=== PATIENT | female | born 1990 | race American Indian/Alaskan Native ===

== ENCOUNTER 2017-02-28 20:21 | Emergency (ER) | payer MEDICAID ==
[2017-02-28 20:27] VITALS: BP 117/77
--- NOTE | 2017-02-28 20:37 | EDM.PDOC ---
ED HPI GENERAL MEDICAL PROBLEM - General Chief Complaint: Chest Pain Stated Complaint: CHEST PAINS, [id number] Time Seen by Provider: 02/28/17 20:34 Source of Information: Reports: Patient History Limitations: Reports: No Limitations - History of Present Illness INITIAL COMMENTS - FREE TEXT/NARRATIVE: 3 weeks h/o constant dull achy chest pain that goes sharp stabbing on off but tonight got so bad it made her double over. also 28 weeks also she "" after last delivery due to blood lost. states just moved here and has appt with Dr Orona. but had one twin demise. 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: , Other (See Below) Other OB/BYN History: hx hemorrhage Musculoskeletal History: Reports: None Neurological History: Reports: None Psychiatric History: Reports: None Endocrine/Metabolic History: Reports: None Hematologic History: Reports: Anemia Immunologic History: Reports: None Oncologic (Cancer) History: Reports: None Dermatologic History: Reports: None - Infectious Disease History Infectious Disease History: Reports: None - Past Surgical History Head Surgeries/Procedures: Reports: None Social & Family History - Family History Family Medical History: Noncontributory - Tobacco Use Smoking Status *Q: Current Every Day Smoker Years of Tobacco use: 10 Packs/Tins Daily: 0.1 Second Hand Smoke Exposure: Yes - Caffeine Use Caffeine Use: Reports: Coffee - Recreational Drug Use Recreational Drug Use: No ED ROS GENERAL - Review of Systems Review Of Systems: ROS reveals no pertinent complaints other than HPI. ED EXAM, GENERAL - Physical Exam Exam: See Below Exam Limited By: No Limitations General Appearance: Alert, WD/WN, Anxious Ears: Hearing Grossly Normal Throat/Mouth: Normal Voice, No Airway Compromise Head: Atraumatic Neck: Non-Tender, Full Range of Motion Respiratory/Chest: No Respiratory Distress Cardiovascular: Regular Rate, Rhythm GI/Abdominal: Other (grossly , FHT 150s) Neurological: Alert, Oriented, Normal Cognition, Normal Gait, No Motor/Sensory Deficits Psychiatric: Other (distraught) Skin Exam: Warm, Dry, Normal Color Lymphatic: No Adenopathy Course - Vital Signs Last Recorded V/S: Last Vital Signs Temp 35.9 C 02/28/17 20:22 Pulse 96 02/28/17 20:22 Resp 18 02/28/17 20:22 BP 117/77 02/28/17 20:22 Pulse Ox 100 02/28/17 20:22 - Orders/Labs/Meds Orders: Active Orders 24 hr Category Date Time Status EKG 12 Lead [EKG Documentation Completion] [RC] STAT Care 02/28/17 20:28 Active Sodium Chloride 0.9% [Normal Saline] 1,000 ml Med 02/28/17 21:18 Ordered IV .BOLUS Medication Orders Sodium Chloride (Normal Saline) 1,000 mls @ 500 mls/hr IV .BOLUS ONE Stop: 02/28/17 23:17 Labs: Laboratory Tests 02/28/17 02/28/17 02/28/17 Range/Units 20:30 20:30 20:30 WBC 8.0 (5.0-10.0) 10^3/uL RBC 3.88 L (4.2-5.4) 10^6/uL Hgb 11.7 L (12.0-16.0) g/dL Hct 35.3 L (37.0-47.0) % MCV 91.0 (80-100) fL MCH 30.2 (27.0-34.0) pg MCHC 33.1 (33.0-35.0) g/dL Plt Count 196 (150-450) 10^3/uL Neut % (Auto) 75.4 H (42.2-75.2) % Lymph % (Auto) 15.7 L (20.5-50.1) % [place] % (Auto) 7.7 (2-8) % Eos % (Auto) 1.0 (1.0-3.0) % Baso % (Auto) 0.2 (0.0-1.0) % D-Dimer, Quantitative 558 H (0-400) ng/mL Sodium 138 (135-145) mmol/L Potassium 3.5 L (3.6-5.0) mmol/L Chloride 104 (101-111) mmol/L Carbon Dioxide 25.0 (21.0-31.0) mmol/L Anion Gap 12.5 BUN 8 (7-18) mg/dL Creatinine 0.6 (0.6-1.3) mg/dL Est Cr Clr Drug Dosing 145.85 mL/min Estimated GFR (MDRD) > 60 BUN/Creatinine Ratio 13.33 Glucose 78 (74-105) mg/dL Calcium 8.6 (8.4-10.2) mg/dl Total Bilirubin 0.5 (0.2-1.0) mg/dL AST 93 H (10-42) IU/L ALT 108 H (10-60) IU/L Alkaline Phosphatase 99 (42-121) IU/L Troponin I < 0.02 (0.00-0.02) ng/ml Total Protein 6.6 L (6.7-8.2) g/dl Albumin 2.8 L (3.2-5.5) g/dl Globulin 3.8 Albumin/Globulin Ratio 0.74 Meds: Medications Generic Name Dose Route Start Last Admin Trade Name Freq PRN Reason Stop Dose Admin Sodium Chloride 1,000 mls @ 500 mls/hr 02/28/17 21:18 Normal Saline IV 02/28/17 23:17 .BOLUS ONE Discontinued Medications Generic Name Dose Route Start Last Admin Trade Name Freq PRN Reason Stop Dose Admin Morphine Sulfate 2 mg 02/28/17 21:18 Morphine IVPUSH 02/28/17 21:19 ONETIME ONE Ondansetron HCl 4 mg 02/28/17 21:18 Zofran IV 02/28/17 21:19 ONETIME ONE - Re-Assessments/Exams Free Text/Narrative Re-Assessment/Exam: 02/28/17 21:[address] Bhagat @ [facility] who kindly accepted pt. Departure - Departure Time of Disposition: 21:22 Disposition: DC/Tfer to [facility] 02 Reason for Transfer *Q: Other Condition: Good Clinical Impression: Chest pain at rest, Elevated d-dimer Qualifiers: Weeks of gestation: 28 weeks Qualified Code(s): Z3A.28 - 28 weeks gestation of Forms: Interfacility Transfer EMTALA - My Orders Last 24 Hours: My Active Orders 02/28/17 20:28 EKG 12 Lead [EKG Documentation Completion] [RC] STAT 02/28/17 21:18 Sodium Chloride 0.9% [Normal Saline] 1,000 ml IV .BOLUS - Assessment/Plan Last 24 Hours: My Active Orders 02/28/17 20:28 EKG 12 Lead [EKG Documentation Completion] [RC] STAT 02/28/17 21:18 Sodium Chloride 0.9% [Normal Saline] 1,000 ml IV .BOLUS
[2017-02-28 20:57] LABS: CHLORIDE,CL 104 mmol/L (101-111); SODIUM,NA 138 mmol/L (135-145)
[2017-02-28] MEDS ORDERED: Sodium Chloride 0.9% 1,000 ML IV ONE (21:18)
[2017-02-28] MEDS ORDERED: Ondansetron 4 MG/2 ML SDV IV ONE (21:18)
[2017-02-28] MEDS ORDERED: Morphine 2 MG/ML Syringe IVPUSH ONE (21:18)
--- NOTE | 2017-03-02 09:37 | EKG ---
02/28/2017 - ALEXIS CERON I reviewed the EKG and agree with the machine reading. [facility] /[id number]
== END 2017-02-28 21:57 ==
LOC: DL.ED 20:21
DX: O99.89 Other specified diseases and conditions complicating pregnancy, childbirth and the puerperium (principal); R07.9 Chest pain, unspecified; R79.1 Abnormal coagulation profile; O99.333 Smoking (tobacco) complicating pregnancy, third trimester; F17.210 Nicotine dependence, cigarettes, uncomplicated; Z86.2 Personal history of diseases of the blood and blood-forming organs and certain disorders involving the immune mechanism; Z3A.28 28 weeks gestation of pregnancy
CPT/HCPCS: 36415; 80053; 84484; 85025; 85379; 93005; 93010; 96361; 96374; 96375; 99285; J2270; J2405; J7030

== ENCOUNTER 2017-05-16 07:46 | Inpatient (IN) | payer MEDICAID, SELFPAY ==
[2017-05-16] MEDS ORDERED: Methylergonovine 0.2 MG/1 ML Amp IM PRN (07:52)
[2017-05-16] MEDS ORDERED: Lactated Ringers 500 ML IV ONE (07:52)
[2017-05-16] MEDS ORDERED: Misoprostol 400 MCG (4 X 100 MCG TAB) RECTAL PRN ×2 (07:52→13:58)
[2017-05-16] MEDS ORDERED: Lidocaine 1% 30 ML SDV INJECT PRN (07:52)
[2017-05-16] MEDS ORDERED: Acetaminophen 325 MG Tab PO PRN (07:52)
[2017-05-16] MEDS ORDERED: Carboprost Tromethamine 250 MCG/1 ML Amp IM PRN ×2 (07:52→13:58)
[2017-05-16] MEDS ORDERED: Sodium Chloride 0.9% 10 ML Syringe FLUSH PRN ×2 (07:52→13:58)
[2017-05-16] MEDS: Lactated Ringers 1,000 ML IV SCH ×3 (08:00→18:28)
[2017-05-16] MEDS ORDERED: Ampicillin 1 GM in Sodium Chloride 0.9% 100 ML IV SCH (08:00)
[2017-05-16] MEDS ORDERED: Ampicillin 1 GM in Sodium Chloride 0.9% 100 ML IV ONE (08:30)
--- NOTE | 2017-05-16 09:14 | PCM.PNLD ---
Labor Progress Note - VS & Meds Active Medications: Current Medications Acetaminophen (Tylenol) 650 mg PO Q4H PRN PRN Reason: Pain (Mild 1-3) and fever Carboprost Tromethamine (Hemabate Ds) 250 mcg IM ASDIRECTED PRN PRN Reason: HEMORRHAGE Ampicillin Sodium 1 gm/ Sodium (Chloride) 50 mls @ 100 mls/hr IV Q6H [facility] Lactated Ringer's (Ringers, Lactated) 500 mls @ 125 mls/hr IV .BOLUS ONE Stop: 05/16/17 11:51 Lactated Ringer's (Ringers, Lactated) 1,000 mls @ 125 mls/hr IV ASDIRECTED [facility] Last Admin: 05/16/17 08:00 Dose: 125 mls/hr Ampicillin Sodium 1 gm/ Sodium (Chloride) 100 mls @ 100 mls/hr IV ONETIME ONE Stop: 05/16/17 09:29 Last Admin: 05/16/17 07:40 Dose: 100 mls/hr Lidocaine HCl (Xylocaine-Mpf 1%) 10 ml INJECT ASDIRECTED PRN PRN Reason: Perineal Repair Methylergonovine Maleate (Methergine) 0.2 mg IM ASDIRECTED PRN PRN Reason: Hemorrhage Misoprostol (Cytotec) 800 mcg RECTAL ASDIRECTED PRN PRN Reason: Hemorrhage Ondansetron HCl (Zofran) 4 mg IV Q4H PRN PRN Reason: Nausea/Vomiting Sodium Chloride (Saline Flush) 10 ml FLUSH ASDIRECTED PRN PRN Reason: Keep Vein Open Discontinued Medications Ampicillin Sodium 1 gm/ Sodium (Chloride) 100 mls @ 100 mls/hr IV ASDIRECTED [facility] Stop: 05/17/17 08:59 - Uterine Contractions Uterine Monitoring Mode: External [place] Contraction Intensity: Mild to Moderate Uterine Resting Tone: Soft - Monitoring Monitor Mode: External Ultrasound Heart Rate (FHR) Baseline: 140 Heart Rate (FHR) Variability: Moderate (6-25 bmp) Accelerations: Present, 15x15 Decelerations: None Strip Review: Category I - Vaginal Exam Dilation (cm): 2.5 Effacement (Percent): 80 Station: -2 Cervical Position: Posterior Sterile Vaginal Exam Performed By: Camron Garces Vaginal Exam Comment: AROM, Clear fluid - Labor Progress (Free Text) Labor Progress: Patient very uncomfortable. No nausea, vomiting,or diarrhea. No fever or chills. Nubain 20 mg IM given feeling much better. Aundrea every 2-3 minutes. Continue present care. Will get Intrathecal when she desires and is in active labor.
[2017-05-16] MEDS ORDERED: Nalbuphine 20 MG/1 ML Amp IM ONE (09:45)
[2017-05-16] MEDS: Ondansetron 4 MG/2 ML SDV IV PRN ×2 (12:52→18:03)
[2017-05-16] MEDS: Ampicillin 1 GM in Sodium Chloride 0.9% 50 ML IV SCH ×3 (13:14→20:15)
[2017-05-16] MEDS ORDERED: Oxytocin/Normal Saline 30 UNIT/500 ML BAG IV SCH (13:30)
[2017-05-16] MEDS ORDERED: Simethicone 80 MG Tab.Chew PO PRN (13:58)
[2017-05-16] MEDS ORDERED: Zolpidem 5 MG Tab PO PRN (13:58)
[2017-05-16] MEDS ORDERED: Benzocaine/Menthol 20%-0.5% Spray 56 GM Canister TOP PRN (13:58)
[2017-05-16] MEDS ORDERED: Ibuprofen 800 MG Tab PO PRN (13:58)
[2017-05-16] MEDS ORDERED: Oxytocin 10 Units/1 ML SDV IM PRN (13:58)
[2017-05-16] MEDS ORDERED: Ampicillin 1 GM AdvVial IV ONE (14:08)
[2017-05-16] MEDS: Oxytocin/Normal Saline 30 UNIT/500 ML BAG IV SCH ×2 (14:26→21:30)
--- NOTE | 2017-05-16 16:00 | PCM.PNLD ---
<Sayra Kaplan - Last Filed: 05/16/17 16:00> Labor Progress Note - VS & Meds Vital Signs: Last Vital Signs Temp 97.4 F 05/16/17 09:00 Pulse 86 05/16/17 10:00 Resp 18 05/16/17 10:00 BP 123/85 05/16/17 10:00 Pulse Ox Active Medications: Current Medications Acetaminophen (Tylenol) 650 mg PO Q6H PRN PRN Reason: mild pain or fever Benzocaine/Menthol (Dermoplast Pain Relief [place]) 0 gm TOP Q4H PRN PRN Reason: Perineal comfort measures Carboprost Tromethamine (Hemabate Ds) 250 mcg IM ASDIRECTED PRN PRN Reason: HEMORRHAGE Carboprost Tromethamine (Hemabate Ds) 250 mcg IM ASDIRECTED PRN PRN Reason: Excessive vaginal bleeding Docusate Sodium (Colace) 100 mg PO BID PRN PRN Reason: Constipation Ampicillin Sodium 1 gm/ Sodium (Chloride) 50 mls @ 100 mls/hr IV Q6H [facility] Last Admin: 05/16/17 14:19 Dose: 100 mls/hr Lactated Ringer's (Ringers, Lactated) 1,000 mls @ 125 mls/hr IV ASDIRECTED [facility] Last Admin: 05/16/17 08:00 Dose: 125 mls/hr Oxytocin/Sodium Chloride (Pitocin In Ns 30 Unit/500 Ml) 30 unit in 500 mls @ 2 mls/hr IV TITRATE [facility]; 2 MUNITS/MIN PRN Reason: Protocol Last Admin: 05/16/17 14:26 Dose: 2 munits/min, 2 mls/hr Oxytocin/Sodium Chloride (Pitocin In Ns 30 Unit/500 Ml) 30 unit in 500 mls @ 2 mls/hr IV TITRATE [facility]; 2 MUNITS/MIN PRN Reason: Protocol Ibuprofen (Motrin) 800 mg PO Q8H PRN PRN Reason: Mild Pain or Fever Lidocaine HCl (Xylocaine-Mpf 1%) 10 ml INJECT ASDIRECTED PRN PRN Reason: Perineal Repair Methylergonovine Maleate (Methergine) 0.2 mg IM ASDIRECTED PRN PRN Reason: Hemorrhage Misoprostol (Cytotec) 800 mcg RECTAL ASDIRECTED PRN PRN Reason: Hemorrhage Misoprostol (Cytotec) 800 mcg RECTAL ONETIME PRN PRN Reason: Hemorrhage Ondansetron HCl (Zofran) 4 mg IV Q4H PRN PRN Reason: Nausea/Vomiting Last Admin: 05/16/17 12:52 Dose: 4 mg Oxytocin (Pitocin) 10 unit IM ONETIME PRN PRN Reason: Bleeding Prenat Multivit/[employer]/Iron/Folic Ac ( Plus Iron) 1 each PO DAILY [facility] Simethicone (Simethicone) 80 mg PO Q4H PRN PRN Reason: Gas Sodium Chloride (Saline Flush) 10 ml FLUSH ASDIRECTED PRN PRN Reason: Keep Vein Open Zolpidem Tartrate (Ambien) 5 mg PO BEDTIME PRN PRN Reason: Insomnia Discontinued Medications Acetaminophen (Tylenol) 650 mg PO Q4H PRN PRN Reason: Pain (Mild 1-3) and fever Ampicillin Sodium (Ampicillin) Confirm Administered Dose 1 gm IV .STK-MED ONE Stop: 05/16/17 14:09 Ampicillin Sodium 1 gm/ Sodium (Chloride) 100 mls @ 100 mls/hr IV ASDIRECTED [facility] Stop: 05/17/17 08:59 Lactated Ringer's (Ringers, Lactated) 500 mls @ 125 mls/hr IV .BOLUS ONE Stop: 05/16/17 11:51 Last Admin: 05/16/17 12:53 Dose: 125 mls/hr Ampicillin Sodium 1 gm/ Sodium (Chloride) 100 mls @ 100 mls/hr IV ONETIME ONE Stop: 05/16/17 09:29 Last Admin: 05/16/17 07:40 Dose: 100 mls/hr Nalbuphine HCl (Nubain) 20 mg IM ONETIME ONE Stop: 05/16/17 09:46 Last Admin: 05/16/17 07:41 Dose: 20 mg Sodium Chloride (Saline Flush) 10 ml FLUSH ASDIRECTED PRN PRN Reason: Keep Vein Open - Uterine Contractions Uterine Monitoring Mode: External [place] Contraction Frequency (min): 3.5-4 Contraction Duration (sec): 50-110 Contraction Intensity: Moderate Uterine Resting Tone: Soft - Monitoring Monitor Mode: External Ultrasound Heart Rate (FHR) Baseline: 140 Heart Rate (FHR) Variability: Moderate (6-25 bmp) Accelerations: Present, 15x15 Decelerations: None Strip Review: Category I - Vaginal Exam Dilation (cm): 4 Effacement (Percent): 80 Station: -1 Cervical Position: Posterior Sterile Vaginal Exam Performed By: Sayra Kaplan (Confirmed by ISIAAH Fountain ) Vaginal Exam Comment: AROM, Clear fluid - Labor Progress (Free Text) Labor Progress: Patient resting in bed, tolerating uterine contractions. Her pitosin is running at 6 units/minute. She is currently 4 cm dilated, 80% effaced, and -1 station. She deferring intrathecal pain control for when she is closer to her second stage of labor. She is able to ambulated to the bathroom and urinate. She denies dysuria, fever, chills, SOB, and vaginal discharge. <Camron Garces - Last Filed: 05/16/17 16:14> Labor Progress Note - VS & Meds Vital Signs: Last Vital Signs Temp 97.4 F 05/16/17 09:00 Pulse 86 05/16/17 10:00 Resp 18 05/16/17 10:00 BP 123/85 05/16/17 10:00 Pulse Ox Active Medications: Current Medications Acetaminophen (Tylenol) 650 mg PO Q6H PRN PRN Reason: mild pain or fever Benzocaine/Menthol (Dermoplast Pain Relief [place]) 0 gm TOP Q4H PRN PRN Reason: Perineal comfort measures Carboprost Tromethamine (Hemabate Ds) 250 mcg IM ASDIRECTED PRN PRN Reason: HEMORRHAGE Carboprost Tromethamine (Hemabate Ds) 250 mcg IM ASDIRECTED PRN PRN Reason: Excessive vaginal bleeding Docusate Sodium (Colace) 100 mg PO BID PRN PRN Reason: Constipation Ampicillin Sodium 1 gm/ Sodium (Chloride) 50 mls @ 100 mls/hr IV Q6H [facility] Last Admin: 05/16/17 14:19 Dose: 100 mls/hr Lactated Ringer's (Ringers, Lactated) 1,000 mls @ 125 mls/hr IV ASDIRECTED [facility] Last Admin: 05/16/17 08:00 Dose: 125 mls/hr Oxytocin/Sodium Chloride (Pitocin In Ns 30 Unit/500 Ml) 30 unit in 500 mls @ 2 mls/hr IV TITRATE [facility]; 2 MUNITS/MIN PRN Reason: Protocol Last Admin: 05/16/17 14:26 Dose: 2 munits/min, 2 mls/hr Oxytocin/Sodium Chloride (Pitocin In Ns 30 Unit/500 Ml) 30 unit in 500 mls @ 2 mls/hr IV TITRATE [facility]; 2 MUNITS/MIN PRN Reason: Protocol Ibuprofen (Motrin) 800 mg PO Q8H PRN PRN Reason: Mild Pain or Fever Lidocaine HCl (Xylocaine-Mpf 1%) 10 ml INJECT ASDIRECTED PRN PRN Reason: Perineal Repair Methylergonovine Maleate (Methergine) 0.2 mg IM ASDIRECTED PRN PRN Reason: Hemorrhage Misoprostol (Cytotec) 800 mcg RECTAL ASDIRECTED PRN PRN Reason: Hemorrhage Misoprostol (Cytotec) 800 mcg RECTAL ONETIME PRN PRN Reason: Hemorrhage Ondansetron HCl (Zofran) 4 mg IV Q4H PRN PRN Reason: Nausea/Vomiting Last Admin: 05/16/17 12:52 Dose: 4 mg Oxytocin (Pitocin) 10 unit IM ONETIME PRN PRN Reason: Bleeding Prenat Multivit/[employer]visor/Iron/Folic Ac ( Plus Iron) 1 each PO DAILY [facility] Simethicone (Simethicone) 80 mg PO Q4H PRN PRN Reason: Gas Sodium Chloride (Saline Flush) 10 ml FLUSH ASDIRECTED PRN PRN Reason: Keep Vein Open Zolpidem Tartrate (Ambien) 5 mg PO BEDTIME PRN PRN Reason: Insomnia Discontinued Medications Acetaminophen (Tylenol) 650 mg PO Q4H PRN PRN Reason: Pain (Mild 1-3) and fever Ampicillin Sodium (Ampicillin) Confirm Administered Dose 1 gm IV .STK-MED ONE Stop: 05/16/17 14:09 Last Admin: 05/16/17 16:05 Dose: Not Given Fentanyl (Sublimaze) 50 mcg IVPUSH ONETIME ONE Stop: 05/16/17 16:02 Ampicillin Sodium 1 gm/ Sodium (Chloride) 100 mls @ 100 mls/hr IV ASDIRECTED [facility] Stop: 05/17/17 08:59 Lactated Ringer's (Ringers, Lactated) 500 mls @ 125 mls/hr IV .BOLUS ONE Stop: 05/16/17 11:51 Last Admin: 05/16/17 12:53 Dose: 125 mls/hr Ampicillin Sodium 1 gm/ Sodium (Chloride) 100 mls @ 100 mls/hr IV ONETIME ONE Stop: 05/16/17 09:29 Last Admin: 05/16/17 07:40 Dose: 100 mls/hr Nalbuphine HCl (Nubain) 20 mg IM ONETIME ONE Stop: 05/16/17 09:46 Last Admin: 05/16/17 07:41 Dose: 20 mg Sodium Chloride (Saline Flush) 10 ml FLUSH ASDIRECTED PRN PRN Reason: Keep Vein Open - Labor Progress (Free Text) Labor Progress: I have seen and evaluated the patient. No issues. Desires IV medication for pain at this time. Reassuring category 1 strip. Will continue with Pitocin augmentation.
[2017-05-16] MEDS ORDERED: fentaNYL 100 MCG/2 ML SDV IVPUSH ONE (16:01)
--- NOTE | 2017-05-16 17:31 | PCM.PNLD ---
<Sayra Kaplan - Last Filed: 05/16/17 17:32> Labor Progress Note - VS & Meds Vital Signs: Last Vital Signs Temp 97.6 F 05/16/17 12:30 Pulse 80 05/16/17 11:00 Resp 16 05/16/17 11:00 BP 107/68 05/16/17 11:00 Pulse Ox Active Medications: Current Medications Acetaminophen (Tylenol) 650 mg PO Q6H PRN PRN Reason: mild pain or fever Benzocaine/Menthol (Dermoplast Pain Relief [place]) 0 gm TOP Q4H PRN PRN Reason: Perineal comfort measures Carboprost Tromethamine (Hemabate Ds) 250 mcg IM ASDIRECTED PRN PRN Reason: HEMORRHAGE Carboprost Tromethamine (Hemabate Ds) 250 mcg IM ASDIRECTED PRN PRN Reason: Excessive vaginal bleeding Docusate Sodium (Colace) 100 mg PO BID PRN PRN Reason: Constipation Ampicillin Sodium 1 gm/ Sodium (Chloride) 50 mls @ 100 mls/hr IV Q6H [facility] Last Admin: 05/16/17 14:19 Dose: 100 mls/hr Lactated Ringer's (Ringers, Lactated) 1,000 mls @ 125 mls/hr IV ASDIRECTED [facility] Last Admin: 05/16/17 16:21 Dose: 125 mls/hr Oxytocin/Sodium Chloride (Pitocin In Ns 30 Unit/500 Ml) 30 unit in 500 mls @ 2 mls/hr IV TITRATE [facility]; 2 MUNITS/MIN PRN Reason: Protocol Last Admin: 05/16/17 14:26 Dose: 2 munits/min, 2 mls/hr Oxytocin/Sodium Chloride (Pitocin In Ns 30 Unit/500 Ml) 30 unit in 500 mls @ 2 mls/hr IV TITRATE [facility]; 2 MUNITS/MIN PRN Reason: Protocol Ibuprofen (Motrin) 800 mg PO Q8H PRN PRN Reason: Mild Pain or Fever Lidocaine HCl (Xylocaine-Mpf 1%) 10 ml INJECT ASDIRECTED PRN PRN Reason: Perineal Repair Methylergonovine Maleate (Methergine) 0.2 mg IM ASDIRECTED PRN PRN Reason: Hemorrhage Misoprostol (Cytotec) 800 mcg RECTAL ASDIRECTED PRN PRN Reason: Hemorrhage Misoprostol (Cytotec) 800 mcg RECTAL ONETIME PRN PRN Reason: Hemorrhage Ondansetron HCl (Zofran) 4 mg IV Q4H PRN PRN Reason: Nausea/Vomiting Last Admin: 05/16/17 12:52 Dose: 4 mg Oxytocin (Pitocin) 10 unit IM ONETIME PRN PRN Reason: Bleeding Prenat Multivit/[place]/Iron/Folic Ac ( Plus Iron) 1 each PO DAILY [facility] Simethicone (Simethicone) 80 mg PO Q4H PRN PRN Reason: Gas Sodium Chloride (Saline Flush) 10 ml FLUSH ASDIRECTED PRN PRN Reason: Keep Vein Open Zolpidem Tartrate (Ambien) 5 mg PO BEDTIME PRN PRN Reason: Insomnia Discontinued Medications Acetaminophen (Tylenol) 650 mg PO Q4H PRN PRN Reason: Pain (Mild 1-3) and fever Ampicillin Sodium (Ampicillin) Confirm Administered Dose 1 gm IV .STK-MED ONE Stop: 05/16/17 14:09 Last Admin: 05/16/17 16:05 Dose: Not Given Fentanyl (Sublimaze) 50 mcg IVPUSH ONETIME ONE Stop: 05/16/17 16:02 Last Admin: 05/16/17 16:21 Dose: 50 mcg Ampicillin Sodium 1 gm/ Sodium (Chloride) 100 mls @ 100 mls/hr IV ASDIRECTED [facility] Stop: 05/17/17 08:59 Lactated Ringer's (Ringers, Lactated) 500 mls @ 125 mls/hr IV .BOLUS ONE Stop: 05/16/17 11:51 Last Admin: 05/16/17 12:53 Dose: 125 mls/hr Ampicillin Sodium 1 gm/ Sodium (Chloride) 100 mls @ 100 mls/hr IV ONETIME ONE Stop: 05/16/17 09:29 Last Admin: 05/16/17 07:40 Dose: 100 mls/hr Nalbuphine HCl (Nubain) 20 mg IM ONETIME ONE Stop: 05/16/17 09:46 Last Admin: 05/16/17 07:41 Dose: 20 mg Sodium Chloride (Saline Flush) 10 ml FLUSH ASDIRECTED PRN PRN Reason: Keep Vein Open - Uterine Contractions Uterine Monitoring Mode: External [place] Contraction Frequency (min): 3.5-4 Contraction Duration (sec): 50-110 Contraction Intensity: Moderate Uterine Resting Tone: Soft - Monitoring Monitor Mode: External Ultrasound Heart Rate (FHR) Baseline: 140 Heart Rate (FHR) Variability: Moderate (6-25 bmp) Accelerations: Present, 15x15 Decelerations: Early, Intermittent (<50% x 20 min) Strip Review: Category I - Vaginal Exam Dilation (cm): 5+ Effacement (Percent): 80 Station: -1 Cervical Position: Posterior Sterile Vaginal Exam Performed By: Sayra Kaplan (Confirmed by ISAIAH Fountain ) Vaginal Exam Comment: AROM, Clear fluid - Labor Progress (Free Text) Labor Progress: Patient tolerating contractions well after 50mcg IV Fentanyl push. She 5+ cm dilated, 80% effaced, and -1 station. Pitocin was increased to 12 units/minute after cervical check. heart rate in 130 - 140s with early decelerations. Patient is eating toast and visiting with Father of Baby Irving. Patient able to ambulate to bathroom and urinating. Patient denies fever, chills, SOB, vaginal discharge or dysuria. <Camron Garces - Last Filed: 05/16/17 19:42> Labor Progress Note - VS & Meds Vital Signs: Last Vital Signs Temp 97.9 F 05/16/17 15:30 Pulse 80 05/16/17 15:30 Resp 18 05/16/17 15:30 BP 113/73 05/16/17 15:30 Pulse Ox Active Medications: Current Medications Acetaminophen (Tylenol) 650 mg PO Q6H PRN PRN Reason: mild pain or fever Benzocaine/Menthol (Dermoplast Pain Relief [place]) 0 gm TOP Q4H PRN PRN Reason: Perineal comfort measures Carboprost Tromethamine (Hemabate Ds) 250 mcg IM ASDIRECTED PRN PRN Reason: HEMORRHAGE Carboprost Tromethamine (Hemabate Ds) 250 mcg IM ASDIRECTED PRN PRN Reason: Excessive vaginal bleeding Docusate Sodium (Colace) 100 mg PO BID PRN PRN Reason: Constipation Ampicillin Sodium 1 gm/ Sodium (Chloride) 50 mls @ 100 mls/hr IV Q6H [facility] Last Admin: 05/16/17 14:19 Dose: 100 mls/hr Lactated Ringer's (Ringers, Lactated) 1,000 mls @ 125 mls/hr IV ASDIRECTED [facility] Last Admin: 05/16/17 18:28 Dose: 125 mls/hr Oxytocin/Sodium Chloride (Pitocin In Ns 30 Unit/500 Ml) 30 unit in 500 mls @ 2 mls/hr IV TITRATE [facility]; 2 MUNITS/MIN PRN Reason: Protocol Last Admin: 05/16/17 14:26 Dose: 2 munits/min, 2 mls/hr Oxytocin/Sodium Chloride (Pitocin In Ns 30 Unit/500 Ml) 30 unit in 500 mls @ 2 mls/hr IV TITRATE [facility]; 2 MUNITS/MIN PRN Reason: Protocol Ibuprofen (Motrin) 800 mg PO Q8H PRN PRN Reason: Mild Pain or Fever Lidocaine HCl (Xylocaine-Mpf 1%) 10 ml INJECT ASDIRECTED PRN PRN Reason: Perineal Repair Methylergonovine Maleate (Methergine) 0.2 mg IM ASDIRECTED PRN PRN Reason: Hemorrhage Misoprostol (Cytotec) 800 mcg RECTAL ASDIRECTED PRN PRN Reason: Hemorrhage Misoprostol (Cytotec) 800 mcg RECTAL ONETIME PRN PRN Reason: Hemorrhage Ondansetron HCl (Zofran) 4 mg IV Q4H PRN PRN Reason: Nausea/Vomiting Last Admin: 05/16/17 18:03 Dose: 4 mg Oxytocin (Pitocin) 10 unit IM ONETIME PRN PRN Reason: Bleeding Prenat Multivit/[place]/Iron/Folic Ac ( Plus Iron) 1 each PO DAILY [facility] Simethicone (Simethicone) 80 mg PO Q4H PRN PRN Reason: Gas Sodium Chloride (Saline Flush) 10 ml FLUSH ASDIRECTED PRN PRN Reason: Keep Vein Open Zolpidem Tartrate (Ambien) 5 mg PO BEDTIME PRN PRN Reason: Insomnia Discontinued Medications Acetaminophen (Tylenol) 650 mg PO Q4H PRN PRN Reason: Pain (Mild 1-3) and fever Ampicillin Sodium (Ampicillin) Confirm Administered Dose 1 gm IV .STK-MED ONE Stop: 05/16/17 14:09 Last Admin: 05/16/17 16:05 Dose: Not Given Epinephrine HCl (Adrenalin) Confirm Administered Dose 1 mg .ROUTE .STK-MED ONE Stop: 05/16/17 18:15 Last Admin: 05/16/17 19:31 Dose: Not Given Fentanyl (Sublimaze) 50 mcg IVPUSH ONETIME ONE Stop: 05/16/17 16:02 Last Admin: 05/16/17 16:21 Dose: 50 mcg Fentanyl (Sublimaze) Confirm Administered Dose 100 mcg .ROUTE .STK-MED ONE Stop: 05/16/17 18:14 Last Admin: 05/16/17 19:30 Dose: Not Given Ampicillin Sodium 1 gm/ Sodium (Chloride) 100 mls @ 100 mls/hr IV ASDIRECTED [facility] Stop: 05/17/17 08:59 Lactated Ringer's (Ringers, Lactated) 500 mls @ 125 mls/hr IV .BOLUS ONE Stop: 05/16/17 11:51 Last Admin: 05/16/17 12:53 Dose: 125 mls/hr Ampicillin Sodium 1 gm/ Sodium (Chloride) 100 mls @ 100 mls/hr IV ONETIME ONE Stop: 05/16/17 09:29 Last Admin: 05/16/17 07:40 Dose: 100 mls/hr Nalbuphine HCl (Nubain) 20 mg IM ONETIME ONE Stop: 05/16/17 09:46 Last Admin: 05/16/17 07:41 Dose: 20 mg Sodium Chloride (Saline Flush) 10 ml FLUSH ASDIRECTED PRN PRN Reason: Keep Vein Open Sufentanil Citrate (Sufenta) Confirm Administered Dose 50 mcg .ROUTE .STK-MED ONE Stop: 05/16/17 18:15 Last Admin: 05/16/17 19:31 Dose: Not Given - Labor Progress (Free Text) Labor Progress: Patient doing well. No other complaints. I discussed the cse and evaluated the patient. All questions answered.
[2017-05-16] MEDS ORDERED: fentaNYL 100 MCG/2 ML SDV ONE (18:13)
[2017-05-16] MEDS ORDERED: EPINEPHrine 1 MG/ML SDV ONE (18:14)
--- NOTE | 2017-05-16 18:59 | PCM.PNLD ---
Labor Progress Note - VS & Meds Vital Signs: Last Vital Signs Temp 97.7 F 05/16/17 14:24 Pulse 90 05/16/17 14:24 Resp 16 05/16/17 14:24 BP 108/74 05/16/17 14:24 Pulse Ox Active Medications: Current Medications Acetaminophen (Tylenol) 650 mg PO Q6H PRN PRN Reason: mild pain or fever Benzocaine/Menthol (Dermoplast Pain Relief [place]) 0 gm TOP Q4H PRN PRN Reason: Perineal comfort measures Carboprost Tromethamine (Hemabate Ds) 250 mcg IM ASDIRECTED PRN PRN Reason: HEMORRHAGE Carboprost Tromethamine (Hemabate Ds) 250 mcg IM ASDIRECTED PRN PRN Reason: Excessive vaginal bleeding Docusate Sodium (Colace) 100 mg PO BID PRN PRN Reason: Constipation Ampicillin Sodium 1 gm/ Sodium (Chloride) 50 mls @ 100 mls/hr IV Q6H [facility] Last Admin: 05/16/17 14:19 Dose: 100 mls/hr Lactated Ringer's (Ringers, Lactated) 1,000 mls @ 125 mls/hr IV ASDIRECTED USMAN Last Admin: 05/16/17 18:28 Dose: 125 mls/hr Oxytocin/Sodium Chloride (Pitocin In Ns 30 Unit/500 Ml) 30 unit in 500 mls @ 2 mls/hr IV TITRATE USMAN; 2 MUNITS/MIN PRN Reason: Protocol Last Admin: 05/16/17 14:26 Dose: 2 munits/min, 2 mls/hr Oxytocin/Sodium Chloride (Pitocin In Ns 30 Unit/500 Ml) 30 unit in 500 mls @ 2 mls/hr IV TITRATE USMAN; 2 MUNITS/MIN PRN Reason: Protocol Ibuprofen (Motrin) 800 mg PO Q8H PRN PRN Reason: Mild Pain or Fever Lidocaine HCl (Xylocaine-Mpf 1%) 10 ml INJECT ASDIRECTED PRN PRN Reason: Perineal Repair Methylergonovine Maleate (Methergine) 0.2 mg IM ASDIRECTED PRN PRN Reason: Hemorrhage Misoprostol (Cytotec) 800 mcg RECTAL ASDIRECTED PRN PRN Reason: Hemorrhage Misoprostol (Cytotec) 800 mcg RECTAL ONETIME PRN PRN Reason: Hemorrhage Ondansetron HCl (Zofran) 4 mg IV Q4H PRN PRN Reason: Nausea/Vomiting Last Admin: 05/16/17 18:03 Dose: 4 mg Oxytocin (Pitocin) 10 unit IM ONETIME PRN PRN Reason: Bleeding Prenat Multivit/[place]/Iron/Folic Ac ( Plus Iron) 1 each PO DAILY USMAN Simethicone (Simethicone) 80 mg PO Q4H PRN PRN Reason: Gas Sodium Chloride (Saline Flush) 10 ml FLUSH ASDIRECTED PRN PRN Reason: Keep Vein Open Zolpidem Tartrate (Ambien) 5 mg PO BEDTIME PRN PRN Reason: Insomnia Discontinued Medications Acetaminophen (Tylenol) 650 mg PO Q4H PRN PRN Reason: Pain (Mild 1-3) and fever Ampicillin Sodium (Ampicillin) Confirm Administered Dose 1 gm IV .STK-MED ONE Stop: 05/16/17 14:09 Last Admin: 05/16/17 16:05 Dose: Not Given Epinephrine HCl (Adrenalin) Confirm Administered Dose 1 mg .ROUTE .STK-MED ONE Stop: 05/16/17 18:15 Fentanyl (Sublimaze) 50 mcg IVPUSH ONETIME ONE Stop: 05/16/17 16:02 Last Admin: 05/16/17 16:21 Dose: 50 mcg Fentanyl (Sublimaze) Confirm Administered Dose 100 mcg .ROUTE .STK-MED ONE Stop: 05/16/17 18:14 Ampicillin Sodium 1 gm/ Sodium (Chloride) 100 mls @ 100 mls/hr IV ASDIRECTED [facility] Stop: 05/17/17 08:59 Lactated Ringer's (Ringers, Lactated) 500 mls @ 125 mls/hr IV .BOLUS ONE Stop: 05/16/17 11:51 Last Admin: 05/16/17 12:53 Dose: 125 mls/hr Ampicillin Sodium 1 gm/ Sodium (Chloride) 100 mls @ 100 mls/hr IV ONETIME ONE Stop: 05/16/17 09:29 Last Admin: 05/16/17 07:40 Dose: 100 mls/hr Nalbuphine HCl (Nubain) 20 mg IM ONETIME ONE Stop: 05/16/17 09:46 Last Admin: 05/16/17 07:41 Dose: 20 mg Sodium Chloride (Saline Flush) 10 ml FLUSH ASDIRECTED PRN PRN Reason: Keep Vein Open Sufentanil Citrate (Sufenta) Confirm Administered Dose 50 mcg .ROUTE .[facility] ONE Stop: 05/16/17 18:15 - Uterine Contractions Uterine Monitoring Mode: External [place] Contraction Frequency (min): 3.5-4 Contraction Duration (sec): 50-110 Contraction Intensity: Moderate Uterine Resting Tone: Soft - Monitoring Monitor Mode: External Ultrasound Heart Rate (FHR) Baseline: 140 Heart Rate (FHR) Variability: Moderate (6-25 bmp) Accelerations: Present, 15x15 Decelerations: Early, Intermittent (<50% x 20 min) Strip Review: Category I - Vaginal Exam Dilation (cm): 6 Effacement (Percent): 80 Station: 0 Cervical Position: Posterior Sterile Vaginal Exam Performed By: Sayra Kaplan (Confirmed by Essie Duran RN ) Vaginal Exam Comment: Clear fluid - Labor Progress (Free Text) Labor Progress: Patient received intrathecal at 1830 and tolerated procedure well. Cervical check was performed at 1850 at she had progressed to 6cm dilated with caput at close to 0. Effacement of 80%. Patient was encouraged to rest. heart rate in 130-140s with early decelerations. Patient denies sharp pains with contractions, fever, chills, vaginal discharge, or numbness/tingling in extremities.
--- NOTE | 2017-05-16 19:08 | PCM.PRNOTE ---
- Free Text/Narrative Note: Requested to provide analgesia to full term patient in severe pain. Upon entering the room, patient is lying on left side complaining of severe abdominal pain and discomfort. Procedure was discussed with patient including adverse outcomes and expectations. Pt consented to analgesia, SAB/IT. Pt placed into a sitting position. Landmarks for SAB/IT were identified and marked. Back was prepped with betadine x3. A sterile, transparent, fenestrated drape was applied. Excess betadine was removed. Using 3 mL of a 1% lidocaine solution, a skin wheel was placed at the L3/L4 interspace. A 24 ga (4 inch) Pencan spinal needle was inserted until positive for CSF. Negative for heme or paresthesias. Injected fentanyl 20 mcg, sufentanil 10 mcg, and 13.5 mg of a 0.75% bupivacaine solution with an epi wash. Pt was placed left lateral position for approximately 20 minutes. There were zero complications or adverse outcomes. Will continue to monitor.
--- NOTE | 2017-05-16 20:24 | PCM.DEL ---
L & D Note - General Info Date of Service: 05/16/17 (39 2/7 weeks gestation at 1959) Mother's Due Date: 05/21/17 (By 24 week U/S) - Delivery Note Labor: Spontaneous, Augmented by ARM, Augmented by Oxytocin Delivery Outcome: Livebirth Delivery Method: Spontaneous Vaginal Delivery-Single (, OA, Viable female , 2 vessel umbilical cord, 7lbs 6oz 's 8 and 9) Delivery Mode: Spontaneous Presentation: Vertex Nuchal Cord: None Anesthesia Type: Intrathecal Amniotic Fluid Description: Clear Episiotomy Type: None Laceration: None Placenta: Intact, Spontaneous Cord: 3 Vessels Estimated Blood Loss: 250 Resuscitation Needed: No : Suctioned, Bulb Syringe, Stimulated, [place] Used Provider: Camron Garces Score 1 min: 8 Score 5 min: 9 Second Stage Interventions: Reports: Encouragement Given, Pushing Effectively, Pushing, Stirrups/Leg Supports Delivery Comments (Free Text/Narrative):: , OA, Viable female infant over intact perineum Cord 2 vessel not around neck. Placenta delivered by simple expression intact. Labia, vagina and cervix inspected and intact. Mother and infant in good condition. No complictions. Weight 7lbs 6oz 's- 8 and 9. - Patient Data Vitals - Most Recent: Last Vital Signs Temp 98.4 F 05/16/17 18:15 Pulse 74 05/16/17 18:45 Resp 16 05/16/17 18:45 BP 107/60 05/16/17 18:45 Pulse Ox 98 05/16/17 18:45 Weight - Most Recent: 147 lb Lab Results Last 24 Hours: Laboratory Results - last 24 hr 05/16/17 Range/Units 08:15 WBC 15.6 H (5.0-10.0) 10^3/uL RBC 3.57 L (4.2-5.4) 10^6/uL Hgb 10.4 L (12.0-16.0) g/dL Hct 31.7 L (37.0-47.0) % MCV 88.8 (80-100) fL MCH 29.1 (27.0-34.0) pg MCHC 32.8 L (33.0-35.0) g/dL Plt Count 223 (150-450) 10^3/uL Med Orders - Current: Current Medications Acetaminophen (Tylenol) 650 mg PO Q6H PRN PRN Reason: mild pain or fever Benzocaine/Menthol (Dermoplast Pain Relief [place]) 0 gm TOP Q4H PRN PRN Reason: Perineal comfort measures Carboprost Tromethamine (Hemabate Ds) 250 mcg IM ASDIRECTED PRN PRN Reason: HEMORRHAGE Carboprost Tromethamine (Hemabate Ds) 250 mcg IM ASDIRECTED PRN PRN Reason: Excessive vaginal bleeding Docusate Sodium (Colace) 100 mg PO BID PRN PRN Reason: Constipation Ampicillin Sodium 1 gm/ Sodium (Chloride) 50 mls @ 100 mls/hr IV Q6H USMAN Last Admin: 05/16/17 20:15 Dose: Not Given Lactated Ringer's (Ringers, Lactated) 1,000 mls @ 125 mls/hr IV ASDIRECTED USMAN Last Admin: 05/16/17 18:28 Dose: 125 mls/hr Oxytocin/Sodium Chloride (Pitocin In Ns 30 Unit/500 Ml) 30 unit in 500 mls @ 2 mls/hr IV TITRATE USMAN; 2 MUNITS/MIN PRN Reason: Protocol Last Titration: 05/16/17 15:41 Dose: 6 munits/min, 6 mls/hr Oxytocin/Sodium Chloride (Pitocin In Ns 30 Unit/500 Ml) 30 unit in 500 mls @ 2 mls/hr IV TITRATE USMAN; 2 MUNITS/MIN PRN Reason: Protocol Lidocaine HCl (Xylocaine-Mpf 1%) 10 ml INJECT ASDIRECTED PRN PRN Reason: Perineal Repair Methylergonovine Maleate (Methergine) 0.2 mg IM ASDIRECTED PRN PRN Reason: Hemorrhage Misoprostol (Cytotec) 800 mcg RECTAL ASDIRECTED PRN PRN Reason: Hemorrhage Misoprostol (Cytotec) 800 mcg RECTAL ONETIME PRN PRN Reason: Hemorrhage Ondansetron HCl (Zofran) 4 mg IV Q4H PRN PRN Reason: Nausea/Vomiting Last Admin: 05/16/17 18:03 Dose: 4 mg Oxytocin (Pitocin) 10 unit IM ONETIME PRN PRN Reason: Bleeding Prenat Multivit/Retirement Administrator/Iron/Folic Ac ( Plus Iron) 1 each PO DAILY USMAN Simethicone (Simethicone) 80 mg PO Q4H PRN PRN Reason: Gas Sodium Chloride (Saline Flush) 10 ml FLUSH ASDIRECTED PRN PRN Reason: Keep Vein Open Zolpidem Tartrate (Ambien) 5 mg PO BEDTIME PRN PRN Reason: Insomnia Discontinued Medications Acetaminophen (Tylenol) 650 mg PO Q4H PRN PRN Reason: Pain (Mild 1-3) and fever Ampicillin Sodium (Ampicillin) Confirm Administered Dose 1 gm IV .STK-MED ONE Stop: 05/16/17 14:09 Last Admin: 05/16/17 16:05 Dose: Not Given Epinephrine HCl (Adrenalin) Confirm Administered Dose 1 mg .ROUTE .STK-MED ONE Stop: 05/16/17 18:15 Last Admin: 05/16/17 19:31 Dose: Not Given Fentanyl (Sublimaze) 50 mcg IVPUSH ONETIME ONE Stop: 05/16/17 16:02 Last Admin: 05/16/17 16:21 Dose: 50 mcg Fentanyl (Sublimaze) Confirm Administered Dose 100 mcg .ROUTE .STK-MED ONE Stop: 05/16/17 18:14 Last Admin: 05/16/17 19:30 Dose: Not Given Ampicillin Sodium 1 gm/ Sodium (Chloride) 100 mls @ 100 mls/hr IV ASDIRECTED USMAN Stop: 05/17/17 08:59 Lactated Ringer's (Ringers, Lactated) 500 mls @ 125 mls/hr IV .BOLUS ONE Stop: 05/16/17 11:51 Last Admin: 05/16/17 12:53 Dose: 125 mls/hr Ampicillin Sodium 1 gm/ Sodium (Chloride) 100 mls @ 100 mls/hr IV ONETIME ONE Stop: 05/16/17 09:29 Last Admin: 05/16/17 07:40 Dose: 100 mls/hr Ibuprofen (Motrin) 800 mg PO Q8H PRN PRN Reason: Mild Pain or Fever Nalbuphine HCl (Nubain) 20 mg IM ONETIME ONE Stop: 05/16/17 09:46 Last Admin: 05/16/17 07:41 Dose: 20 mg Sodium Chloride (Saline Flush) 10 ml FLUSH ASDIRECTED PRN PRN Reason: Keep Vein Open Sufentanil Citrate (Sufenta) Confirm Administered Dose 50 mcg .ROUTE .STK-MED ONE Stop: 05/16/17 18:15 Last Admin: 05/16/17 19:31 Dose: Not Given - Problem List Review Problem List Initiated/Reviewed/Updated: Yes - My Orders Last 24 Hours: My Active Orders 05/16/17 07:52 Carboprost Tromethamine [Hemabate DS] 250 mcg IM ASDIRECTED PRN Lidocaine 1% [Xylocaine-MPF 1%] 10 ml INJECT ASDIRECTED PRN Methylergonovine [Methergine] 0.2 mg IM ASDIRECTED PRN Misoprostol [Cytotec] 800 mcg RECTAL ASDIRECTED PRN Ondansetron [Zofran] 4 mg IV Q4H PRN Resuscitation Status Routine 05/16/17 07:54 Patient Status [ADT] Routine Notify Provider Vital Signs OB [RC] ASDIRECTED Notify Provider [RC] PRN Vital Signs [RC] PER UNIT ROUTINE Saline Lock Insert [OM.PC] Routine 05/16/17 07:59 Pump Management, Intrathecal [RC] ASDIRECTED 05/16/17 08:00 Ampicillin 1 gm Sodium Chloride 0.9% [Normal Saline] 50 ml IV Q6H Lactated Ringers [Ringers, Lactated] 1,000 ml IV ASDIRECTED 05/16/17 13:15 Oxytocin/Normal Saline [Pitocin in NS 30 UNIT/500 ML] 30 unit in 500 ml IV TITRATE 05/16/17 13:26 Communication Order [RC] ASDIRECTED Communication Order [RC] ASDIRECTED Communication Order [RC] ASDIRECTED Communication Order [RC] ASDIRECTED Notify Provider [RC] PRN Notify Provider [RC] STAT 05/16/17 13:30 Oxytocin/Normal Saline [Pitocin in NS 30 UNIT/500 ML] 30 unit in 500 ml IV TITRATE 05/16/17 13:58 Up ad Meryl [RC] ASDIRECTED Acetaminophen [Tylenol] 650 mg PO Q6H PRN Benzocaine/Menthol [Dermoplast Pain Relief [place]] See Dose Instructions TOP Q4H PRN Carboprost Tromethamine [Hemabate DS] 250 mcg IM ASDIRECTED PRN Docusate Sodium [Colace] 100 mg PO BID PRN Misoprostol [Cytotec] 800 mcg RECTAL ONETIME PRN Oxytocin [Pitocin] 10 unit IM ONETIME PRN Simethicone 80 mg PO Q4H PRN Sodium Chloride 0.9% [Saline Flush] 10 ml FLUSH ASDIRECTED PRN Zolpidem [Ambien] 5 mg PO BEDTIME PRN Assess Lochia [WOMSER] Per Unit Routine Assess Uterine Involution [WOMSER] Per Unit Routine Breast Pump [WOMSER] Per Unit Routine Ice Therapy [OM.PC] Per Unit Routine Perineal Care [OM.PC] Per Unit Routine Saline Lock Insert [OM.PC] Urgent Sitz Bath [OM.PC] Per Unit Routine 05/16/17 Breakfast Clear Liquid Diet [DIET] 05/17/17 06:00 CBC W/O DIFF,HEMOGRAM [HEME] Routine 05/17/17 09:00 Vit with Ca/FA/Iron [ Plus Iron] 1 each PO DAILY
[2017-05-16] MEDS ORDERED: Measles, Mumps & Rubella Vaccine 0.5 ML SDV SUBCUT ONE (20:33)
[2017-05-17] MEDS: Acetaminophen 325 MG Tab PO PRN ×3 (02:22→14:53)
[2017-05-17] MEDS: Docusate Sodium 100 MG Cap PO PRN ×2 (02:23→20:29)
--- NOTE | 2017-05-17 04:14 | PCM.PNPP ---
- General Info Date of Service: 05/17/17 (PPD # 1 S/P ) Functional Status: Reports: Pain Controlled, Tolerating Diet, Ambulating, Urinating - Review of Systems General: Reports: No Symptoms HEENT: Reports: No Symptoms Pulmonary: Reports: No Symptoms Cardiovascular: Reports: No Symptoms Gastrointestinal: Reports: No Symptoms Genitourinary: Reports: No Symptoms Musculoskeletal: Reports: No Symptoms Skin: Reports: No Symptoms Neurological: Reports: No Symptoms Psychiatric: Reports: No Symptoms - General Info Date of Service: 05/17/17 (PPD # 1 S/P ) - Patient Data Vital Signs - Most Recent: Last Vital Signs Temp 98.0 F 05/16/17 19:41 Pulse 79 05/16/17 21:46 Resp 16 05/16/17 21:16 BP 105/68 05/16/17 21:46 Pulse Ox 98 05/16/17 18:45 Weight - Most Recent: 147 lb I&O - Last 24 Hours: Intake & Output 05/16/17 05/16/17 05/17/17 14:59 22:59 06:59 Intake Total 500 1700 Output Total 1100 Balance 500 600 Lab Results - Last 24 Hours: Laboratory Results - last 24 hr 05/16/17 Range/Units 08:15 WBC 15.6 H (5.0-10.0) 10^3/uL RBC 3.57 L (4.2-5.4) 10^6/uL Hgb 10.4 L (12.0-16.0) g/dL Hct 31.7 L (37.0-47.0) % MCV 88.8 (80-100) fL MCH 29.1 (27.0-34.0) pg MCHC 32.8 L (33.0-35.0) g/dL Plt Count 223 (150-450) 10^3/uL Med Orders - Current: Current Medications Acetaminophen (Tylenol) 650 mg PO Q6H PRN PRN Reason: mild pain or fever Last Admin: 05/17/17 02:22 Dose: 650 mg Benzocaine/Menthol (Dermoplast Pain Relief [place]) 0 gm TOP Q4H PRN PRN Reason: Perineal comfort measures Carboprost Tromethamine (Hemabate Ds) 250 mcg IM ASDIRECTED PRN PRN Reason: HEMORRHAGE Carboprost Tromethamine (Hemabate Ds) 250 mcg IM ASDIRECTED PRN PRN Reason: Excessive vaginal bleeding Docusate Sodium (Colace) 100 mg PO BID PRN PRN Reason: Constipation Last Admin: 05/17/17 02:23 Dose: 100 mg Lactated Ringer's (Ringers, Lactated) 1,000 mls @ 125 mls/hr IV ASDIRECTED USMAN Last Admin: 05/16/17 18:28 Dose: 125 mls/hr Oxytocin/Sodium Chloride (Pitocin In Ns 30 Unit/500 Ml) 30 unit in 500 mls @ 2 mls/hr IV TITRATE USMAN; 2 MUNITS/MIN PRN Reason: Protocol Last Titration: 05/16/17 22:55 Dose: 50 munits/min, 50 mls/hr Oxytocin/Sodium Chloride (Pitocin In Ns 30 Unit/500 Ml) 30 unit in 500 mls @ 2 mls/hr IV TITRATE USMAN; 2 MUNITS/MIN PRN Reason: Protocol Lidocaine HCl (Xylocaine-Mpf 1%) 10 ml INJECT ASDIRECTED PRN PRN Reason: Perineal Repair Methylergonovine Maleate (Methergine) 0.2 mg IM ASDIRECTED PRN PRN Reason: Hemorrhage Misoprostol (Cytotec) 800 mcg RECTAL ASDIRECTED PRN PRN Reason: Hemorrhage Misoprostol (Cytotec) 800 mcg RECTAL ONETIME PRN PRN Reason: Hemorrhage Ondansetron HCl (Zofran) 4 mg IV Q4H PRN PRN Reason: Nausea/Vomiting Last Admin: 05/16/17 18:03 Dose: 4 mg Oxytocin (Pitocin) 10 unit IM ONETIME PRN PRN Reason: Bleeding Prenat Multivit/[place]/Iron/Folic Ac ( Plus Iron) 1 each PO DAILY USMAN Simethicone (Simethicone) 80 mg PO Q4H PRN PRN Reason: Gas Sodium Chloride (Saline Flush) 10 ml FLUSH ASDIRECTED PRN PRN Reason: Keep Vein Open Zolpidem Tartrate (Ambien) 5 mg PO BEDTIME PRN PRN Reason: Insomnia Discontinued Medications Acetaminophen (Tylenol) 650 mg PO Q4H PRN PRN Reason: Pain (Mild 1-3) and fever Ampicillin Sodium (Ampicillin) Confirm Administered Dose 1 gm IV .STK-MED ONE Stop: 05/16/17 14:09 Last Admin: 05/16/17 16:05 Dose: Not Given Epinephrine HCl (Adrenalin) Confirm Administered Dose 1 mg .ROUTE .STK-MED ONE Stop: 05/16/17 18:15 Last Admin: 05/16/17 19:31 Dose: Not Given Fentanyl (Sublimaze) 50 mcg IVPUSH ONETIME ONE Stop: 05/16/17 16:02 Last Admin: 05/16/17 16:21 Dose: 50 mcg Fentanyl (Sublimaze) Confirm Administered Dose 100 mcg .ROUTE .STK-MED ONE Stop: 05/16/17 18:14 Last Admin: 05/16/17 19:30 Dose: Not Given Ampicillin Sodium 1 gm/ Sodium (Chloride) 100 mls @ 100 mls/hr IV ASDIRECTED USMAN Stop: 05/17/17 08:59 Ampicillin Sodium 1 gm/ Sodium (Chloride) 50 mls @ 100 mls/hr IV Q6H USMAN Stop: 05/17/17 00:51 Last Admin: 05/16/17 20:15 Dose: Not Given Lactated Ringer's (Ringers, Lactated) 500 mls @ 125 mls/hr IV .BOLUS ONE Stop: 05/16/17 11:51 Last Admin: 05/16/17 12:53 Dose: 125 mls/hr Ampicillin Sodium 1 gm/ Sodium (Chloride) 100 mls @ 100 mls/hr IV ONETIME ONE Stop: 05/16/17 09:29 Last Admin: 05/16/17 07:40 Dose: 100 mls/hr Ibuprofen (Motrin) 800 mg PO Q8H PRN PRN Reason: Mild Pain or Fever Measles/Mumps/Rubella Vaccine Live (M-M-R Ii Vaccine) 0.5 ml SUBCUT .ONCE ONE Stop: 05/16/17 20:34 Nalbuphine HCl (Nubain) 20 mg IM ONETIME ONE Stop: 05/16/17 09:46 Last Admin: 05/16/17 07:41 Dose: 20 mg Sodium Chloride (Saline Flush) 10 ml FLUSH ASDIRECTED PRN PRN Reason: Keep Vein Open Sufentanil Citrate (Sufenta) Confirm Administered Dose 50 mcg .ROUTE .STK-MED ONE Stop: 05/16/17 18:15 Last Admin: 05/16/17 19:31 Dose: Not Given - Infant Interaction Disposition, : to Nursery Interaction: Holding Infant Feeding: Breastfed ; Nursed Well - Recovery Exam Fundal Tone: Firm Fundal Level: At Umbilicus Fundal Placement: Midline Lochia Amount: Scant Lochia Color: Rubra/Red Perineum Description: Intact, Minimal Bruising/Swelling Episiotomy/Laceration: None Bladder Status: Nonpalpable Urinary Elimination: Not Voiding - Exam General: Alert, Oriented, Cooperative, No Acute Distress HEENT: Pupils Equal, Pupils Reactive, EOMI, Mucous Membr. Moist/[place] Neck: Supple Lungs: Clear to Auscultation, Normal Respiratory Effort Cardiovascular: Regular Rate, Regular Rhythm GI/Abdominal Exam: Normal Bowel Sounds, Soft, Non-Tender, No Distention Extremities: Normal Inspection, Normal Range of Motion, Non-Tender, No Pedal Edema Skin: Warm, Dry, Intact Neurological: No New Focal Deficit, Normal Gait, Normal Speech, Normal Tone Psy/Mental Status: Alert, Normal Affect, Normal Mood - Problem List Review Problem List Initiated/Reviewed/Updated: Yes - My Orders Last 24 Hours: My Active Orders 05/16/17 07:52 Carboprost Tromethamine [Hemabate DS] 250 mcg IM ASDIRECTED PRN Lidocaine 1% [Xylocaine-MPF 1%] 10 ml INJECT ASDIRECTED PRN Methylergonovine [Methergine] 0.2 mg IM ASDIRECTED PRN Misoprostol [Cytotec] 800 mcg RECTAL ASDIRECTED PRN Ondansetron [Zofran] 4 mg IV Q4H PRN Resuscitation Status Routine 05/16/17 07:54 Patient Status [ADT] Routine Notify Provider Vital Signs OB [RC] ASDIRECTED Vital Signs [RC] PER UNIT ROUTINE Saline Lock Insert [OM.PC] Routine 05/16/17 08:00 Lactated Ringers [Ringers, Lactated] 1,000 ml IV ASDIRECTED 05/16/17 13:15 Oxytocin/Normal Saline [Pitocin in NS 30 UNIT/500 ML] 30 unit in 500 ml IV TITRATE 05/16/17 13:30 Oxytocin/Normal Saline [Pitocin in NS 30 UNIT/500 ML] 30 unit in 500 ml IV TITRATE 05/16/17 13:58 Up ad Meryl [RC] ASDIRECTED Acetaminophen [Tylenol] 650 mg PO Q6H PRN Benzocaine/Menthol [Dermoplast Pain Relief [place]] See Dose Instructions TOP Q4H PRN Carboprost Tromethamine [Hemabate DS] 250 mcg IM ASDIRECTED PRN Docusate Sodium [Colace] 100 mg PO BID PRN Misoprostol [Cytotec] 800 mcg RECTAL ONETIME PRN Oxytocin [Pitocin] 10 unit IM ONETIME PRN Simethicone 80 mg PO Q4H PRN Sodium Chloride 0.9% [Saline Flush] 10 ml FLUSH ASDIRECTED PRN Zolpidem [Ambien] 5 mg PO BEDTIME PRN Assess Lochia [WOMSER] Per Unit Routine Assess Uterine Involution [WOMSER] Per Unit Routine Breast Pump [WOMSER] Per Unit Routine Ice Therapy [OM.PC] Per Unit Routine Perineal Care [OM.PC] Per Unit Routine Saline Lock Insert [OM.PC] Urgent Sitz Bath [OM.PC] Per Unit Routine 05/16/17 20:33 Vaccines to be Administered [RC] PER UNIT ROUTINE 05/16/17 Breakfast Clear Liquid Diet [DIET] 05/17/17 06:00 CBC W/O DIFF,HEMOGRAM [HEME] Routine 05/17/17 09:00 Vit with Ca/FA/Iron [ Plus Iron] 1 each PO DAILY - Assessment Assessment:: PPD # 1 S/P Doing well - Plan Plan:: 1. Continue present care 2. Will get MMR 3. All questions answered.
[2017-05-17] MEDS: oxyCODONE 5 MG Tab PO PRN ×3 (04:37→17:54)
[2017-05-17] MEDS: Prenatal Multivitamin with Calcium/Folic Acid/Iron Tab PO SCH (08:44)
[2017-05-17] MEDS ORDERED: EPINEPHrine 1 MG/ML SDV IV ONE (15:01)
[2017-05-17] MEDS ORDERED: fentaNYL 100 MCG/2 ML SDV ITHECAL ONE (15:01)
[2017-05-17] MEDS ORDERED: oxyCODONE 5 MG Tab PO ONE (20:00)
[2017-05-18] MEDS: Acetaminophen 325 MG Tab PO PRN ×3 (00:44→13:32)
[2017-05-18] MEDS: oxyCODONE 5 MG Tab PO PRN ×3 (00:45→13:32)
[2017-05-18] MEDS: Docusate Sodium 100 MG Cap PO PRN (07:18)
--- NOTE | 2017-05-18 08:18 | PCM.PNPP ---
<Sayra Kaplan - Last Filed: 05/18/17 07:58> - General Info Date of Service: 05/18/17 Admission Dx/Problem (Free Text): at 39w1d with no care. Subjective Update: Post- day 2. Patient is feeling well "except for contractions, which happen when I breast feed". Contractions are described as "crampy" and the lower abdomen feels "bruised". Pain is controlled with oxycodone and tylenol. She is with no concerns, baby latching well. She is urinating and has flatulence, but has not had a bowel movement since admission. She is tolerating a full diet. Denies SOB, nausea, vomiting, fever, chills. Father of baby was arrested last night on warrant. Patient's access to transportation is limited. Functional Status: Reports: Pain Controlled, Tolerating Diet, Ambulating, Urinating - Review of Systems General: Reports: No Symptoms HEENT: Reports: No Symptoms Pulmonary: Reports: No Symptoms Cardiovascular: Reports: No Symptoms Gastrointestinal: Reports: Constipation, Flatus. Denies: Nausea, Vomiting Genitourinary: Reports: No Symptoms Musculoskeletal: Reports: No Symptoms Skin: Reports: No Symptoms Neurological: Reports: No Symptoms. Denies: Numbness, Paresthesia Psychiatric: Reports: No Symptoms - General Info Date of Service: 05/18/17 - Patient Data Vital Signs - Most Recent: Last Vital Signs Temp 97.3 F 05/17/17 21:50 Pulse 84 05/17/17 21:50 Resp 16 05/17/17 21:50 BP 108/65 05/17/17 21:50 Pulse Ox 100 05/17/17 21:50 Weight - Most Recent: 66.678 kg I&O - Last 24 Hours: Intake & Output 05/17/17 05/18/17 05/18/17 22:59 06:59 14:59 Intake Total 1600 Balance 1600 Med Orders - Current: Current Medications Acetaminophen (Tylenol) 650 mg PO Q6H PRN PRN Reason: mild pain or fever Last Admin: 05/18/17 07:18 Dose: 650 mg Benzocaine/Menthol (Dermoplast Pain Relief [place]) 0 gm TOP Q4H PRN PRN Reason: Perineal comfort measures Last Admin: 05/17/17 04:38 Dose: 1 spr Carboprost Tromethamine (Hemabate Ds) 250 mcg IM ASDIRECTED PRN PRN Reason: HEMORRHAGE Carboprost Tromethamine (Hemabate Ds) 250 mcg IM ASDIRECTED PRN PRN Reason: Excessive vaginal bleeding Docusate Sodium (Colace) 100 mg PO BID PRN PRN Reason: Constipation Last Admin: 05/18/17 07:18 Dose: 100 mg Lactated Ringer's (Ringers, Lactated) 1,000 mls @ 125 mls/hr IV ASDIRECTED USMAN Last Admin: 05/16/17 18:28 Dose: 125 mls/hr Oxytocin/Sodium Chloride (Pitocin In Ns 30 Unit/500 Ml) 30 unit in 500 mls @ 2 mls/hr IV TITRATE USMAN; 2 MUNITS/MIN PRN Reason: Protocol Last Titration: 05/16/17 22:55 Dose: 50 munits/min, 50 mls/hr Oxytocin/Sodium Chloride (Pitocin In Ns 30 Unit/500 Ml) 30 unit in 500 mls @ 2 mls/hr IV TITRATE USMAN; 2 MUNITS/MIN PRN Reason: Protocol Lidocaine HCl (Xylocaine-Mpf 1%) 10 ml INJECT ASDIRECTED PRN PRN Reason: Perineal Repair Methylergonovine Maleate (Methergine) 0.2 mg IM ASDIRECTED PRN PRN Reason: Hemorrhage Misoprostol (Cytotec) 800 mcg RECTAL ASDIRECTED PRN PRN Reason: Hemorrhage Misoprostol (Cytotec) 800 mcg RECTAL ONETIME PRN PRN Reason: Hemorrhage Ondansetron HCl (Zofran) 4 mg IV Q4H PRN PRN Reason: Nausea/Vomiting Last Admin: 05/16/17 18:03 Dose: 4 mg Oxycodone HCl (Oxycodone) 5 mg PO Q6H PRN PRN Reason: Pain Last Admin: 05/18/17 07:20 Dose: 5 mg Oxytocin (Pitocin) 10 unit IM ONETIME PRN PRN Reason: Bleeding Prenat Multivit/[place]/Iron/Folic Ac ( Plus Iron) 1 each PO DAILY USMAN Last Admin: 05/17/17 08:44 Dose: 1 each Simethicone (Simethicone) 80 mg PO Q4H PRN PRN Reason: Gas Last Admin: 05/17/17 20:29 Dose: 80 mg Sodium Chloride (Saline Flush) 10 ml FLUSH ASDIRECTED PRN PRN Reason: Keep Vein Open Zolpidem Tartrate (Ambien) 5 mg PO BEDTIME PRN PRN Reason: Insomnia Discontinued Medications Acetaminophen (Tylenol) 650 mg PO Q4H PRN PRN Reason: Pain (Mild 1-3) and fever Ampicillin Sodium (Ampicillin) Confirm Administered Dose 1 gm IV .STK-MED ONE Stop: 05/16/17 14:09 Last Admin: 05/16/17 16:05 Dose: Not Given Epinephrine HCl (Adrenalin) Confirm Administered Dose 1 mg .ROUTE .STK-MED ONE Stop: 05/16/17 18:15 Last Admin: 05/16/17 19:31 Dose: Not Given Epinephrine HCl (Adrenalin) 0.1 mg IV .STK-MED ONE Stop: 05/17/17 15:02 Fentanyl (Sublimaze) 50 mcg IVPUSH ONETIME ONE Stop: 05/16/17 16:02 Last Admin: 05/16/17 16:21 Dose: 50 mcg Fentanyl (Sublimaze) Confirm Administered Dose 100 mcg .ROUTE .STK-MED ONE Stop: 05/16/17 18:14 Last Admin: 05/16/17 19:30 Dose: Not Given Fentanyl (Sublimaze) 20 mcg ITHECAL .STK-MED ONE Stop: 05/17/17 15:02 Ampicillin Sodium 1 gm/ Sodium (Chloride) 100 mls @ 100 mls/hr IV ASDIRECTED [facility] Stop: 05/17/17 08:59 Ampicillin Sodium 1 gm/ Sodium (Chloride) 50 mls @ 100 mls/hr IV Q6H [facility] Stop: 05/17/17 00:51 Last Admin: 05/16/17 20:15 Dose: Not Given Lactated Ringer's (Ringers, Lactated) 500 mls @ 125 mls/hr IV .BOLUS ONE Stop: 05/16/17 11:51 Last Admin: 05/16/17 12:53 Dose: 125 mls/hr Ampicillin Sodium 1 gm/ Sodium (Chloride) 100 mls @ 100 mls/hr IV ONETIME ONE Stop: 05/16/17 09:29 Last Admin: 05/16/17 07:40 Dose: 100 mls/hr Ibuprofen (Motrin) 800 mg PO Q8H PRN PRN Reason: Mild Pain or Fever Measles/Mumps/Rubella Vaccine Live (M-M-R Ii Vaccine) 0.5 ml SUBCUT .ONCE ONE Stop: 05/16/17 20:34 Last Admin: 05/17/17 20:31 Dose: 0.5 ml Nalbuphine HCl (Nubain) 20 mg IM ONETIME ONE Stop: 05/16/17 09:46 Last Admin: 05/16/17 07:41 Dose: 20 mg Oxycodone HCl (Oxycodone) 5 mg PO ONETIME ONE Stop: 05/17/17 20:01 Last Admin: 05/17/17 20:29 Dose: 5 mg Sodium Chloride (Saline Flush) 10 ml FLUSH ASDIRECTED PRN PRN Reason: Keep Vein Open Sufentanil Citrate (Sufenta) Confirm Administered Dose 50 mcg .ROUTE .STK-MED ONE Stop: 05/16/17 18:15 Last Admin: 05/16/17 19:31 Dose: Not Given Sufentanil Citrate (Sufenta) 10 mcg ITHECAL .STK-MED ONE Stop: 05/17/17 15:02 - Interaction Infant Disposition, : to Nursery Infant Interaction: Holding Feeding: Breastfed ; Nursed Well - Recovery Exam Fundal Tone: Firm Fundal Level: 1 Fingerbreadths Below Umbilicus Fundal Placement: Midline Lochia Amount: Scant Lochia Color: Rubra/Red Perineum Description: Intact, Minimal Bruising/Swelling Episiotomy/Laceration: None Bladder Status: Nonpalpable, Voiding Urinary Elimination: Voided - Exam General: Alert, Oriented HEENT: Pupils Equal, EOMI, Mucous Membr. Moist/[place] Neck: Supple Lungs: Clear to Auscultation, Normal Respiratory Effort. No: Crackles, Rhonchi Cardiovascular: Regular Rate, Regular Rhythm. No: No Murmurs GI/Abdominal Exam: Soft, No Abnormal Bruit Extremities: Normal Inspection, Normal Range of Motion, No Pedal Edema Skin: Warm, Dry, Intact Wound/Incisions: Healing Well Neurological: No New Focal Deficit Psy/Mental Status: Alert, Normal Affect, Normal Mood - Problem List & Annotations (1) SNOMED Code(s): 34843002 Code(s): Z34.90 - ENCNTR FOR SUPRVSN OF NORMAL , UNSP, UNSP TRIMESTER Status: Acute Current Visit: No QualifierTitle: Weeks of gestation: 39 weeks Qualified Code(s): Z3A.39 - 39 weeks gestation of - Problem List Review Problem List Initiated/Reviewed/Updated: Yes - Assessment Assessment:: PPD # 2. Transportation limited for discharge - Plan Plan:: 1. Continue post care 2. Script for Breast Pump signed 3. Expecting discharge today <Patti Orona - Last Filed: 05/18/17 15:24> - Patient Data Vital Signs - Most Recent: Last Vital Signs Temp 35.7 C 05/18/17 08:00 Pulse 68 05/18/17 08:00 Resp 16 05/18/17 08:00 BP 109/67 05/18/17 08:00 Pulse Ox 99 05/18/17 08:00 I&O - Last 24 Hours: Intake & Output 05/18/17 05/18/17 05/18/17 06:59 14:59 22:59 Intake Total 1600 Balance 1600 Med Orders - Current: Current Medications Acetaminophen (Tylenol) 650 mg PO Q6H PRN PRN Reason: mild pain or fever Last Admin: 05/18/17 13:32 Dose: 650 mg Benzocaine/Menthol (Dermoplast Pain Relief [place]) 0 gm TOP Q4H PRN PRN Reason: Perineal comfort measures Last Admin: 05/17/17 04:38 Dose: 1 spr Carboprost Tromethamine (Hemabate Ds) 250 mcg IM ASDIRECTED PRN PRN Reason: HEMORRHAGE Carboprost Tromethamine (Hemabate Ds) 250 mcg IM ASDIRECTED PRN PRN Reason: Excessive vaginal bleeding Docusate Sodium (Colace) 100 mg PO BID PRN PRN Reason: Constipation Last Admin: 05/18/17 07:18 Dose: 100 mg Lactated Ringer's (Ringers, Lactated) 1,000 mls @ 125 mls/hr IV ASDIRECTED USMAN Last Admin: 05/16/17 18:28 Dose: 125 mls/hr Oxytocin/Sodium Chloride (Pitocin In Ns 30 Unit/500 Ml) 30 unit in 500 mls @ 2 mls/hr IV TITRATE USMAN; 2 MUNITS/MIN PRN Reason: Protocol Last Titration: 05/16/17 22:55 Dose: 50 munits/min, 50 mls/hr Oxytocin/Sodium Chloride (Pitocin In Ns 30 Unit/500 Ml) 30 unit in 500 mls @ 2 mls/hr IV TITRATE USMAN; 2 MUNITS/MIN PRN Reason: Protocol Lidocaine HCl (Xylocaine-Mpf 1%) 10 ml INJECT ASDIRECTED PRN PRN Reason: Perineal Repair Methylergonovine Maleate (Methergine) 0.2 mg IM ASDIRECTED PRN PRN Reason: Hemorrhage Misoprostol (Cytotec) 800 mcg RECTAL ASDIRECTED PRN PRN Reason: Hemorrhage Misoprostol (Cytotec) 800 mcg RECTAL ONETIME PRN PRN Reason: Hemorrhage Ondansetron HCl (Zofran) 4 mg IV Q4H PRN PRN Reason: Nausea/Vomiting Last Admin: 05/16/17 18:03 Dose: 4 mg Oxycodone HCl (Oxycodone) 5 mg PO Q6H PRN PRN Reason: Pain Last Admin: 05/18/17 13:32 Dose: 5 mg Oxytocin (Pitocin) 10 unit IM ONETIME PRN PRN Reason: Bleeding Prenat Multivit/[employer]/Iron/Folic Ac ( Plus Iron) 1 each PO DAILY USMAN Last Admin: 05/18/17 13:32 Dose: 1 each Simethicone (Simethicone) 80 mg PO Q4H PRN PRN Reason: Gas Last Admin: 05/17/17 20:29 Dose: 80 mg Sodium Chloride (Saline Flush) 10 ml FLUSH ASDIRECTED PRN PRN Reason: Keep Vein Open Zolpidem Tartrate (Ambien) 5 mg PO BEDTIME PRN PRN Reason: Insomnia Discontinued Medications Acetaminophen (Tylenol) 650 mg PO Q4H PRN PRN Reason: Pain (Mild 1-3) and fever Ampicillin Sodium (Ampicillin) Confirm Administered Dose 1 gm IV .STK-MED ONE Stop: 05/16/17 14:09 Last Admin: 05/16/17 16:05 Dose: Not Given Epinephrine HCl (Adrenalin) Confirm Administered Dose 1 mg .ROUTE .STK-MED ONE Stop: 05/16/17 18:15 Last Admin: 05/16/17 19:31 Dose: Not Given Epinephrine HCl (Adrenalin) 0.1 mg IV .STK-MED ONE Stop: 05/17/17 15:02 Fentanyl (Sublimaze) 50 mcg IVPUSH ONETIME ONE Stop: 05/16/17 16:02 Last Admin: 05/16/17 16:21 Dose: 50 mcg Fentanyl (Sublimaze) Confirm Administered Dose 100 mcg .ROUTE .STK-MED ONE Stop: 05/16/17 18:14 Last Admin: 05/16/17 19:30 Dose: Not Given Fentanyl (Sublimaze) 20 mcg ITHECAL .STK-MED ONE Stop: 05/17/17 15:02 Ampicillin Sodium 1 gm/ Sodium (Chloride) 100 mls @ 100 mls/hr IV ASDIRECTED US[facility] Stop: 05/17/17 08:59 Ampicillin Sodium 1 gm/ Sodium (Chloride) 50 mls @ 100 mls/hr IV Q6H [facility] Stop: 05/17/17 00:51 Last Admin: 05/16/17 20:15 Dose: Not Given Lactated Ringer's (Ringers, Lactated) 500 mls @ 125 mls/hr IV .BOLUS ONE Stop: 05/16/17 11:51 Last Admin: 05/16/17 12:53 Dose: 125 mls/hr Ampicillin Sodium 1 gm/ Sodium (Chloride) 100 mls @ 100 mls/hr IV ONETIME ONE Stop: 05/16/17 09:29 Last Admin: 05/16/17 07:40 Dose: 100 mls/hr Ibuprofen (Motrin) 800 mg PO Q8H PRN PRN Reason: Mild Pain or Fever Measles/Mumps/Rubella Vaccine Live (M-M-R Ii Vaccine) 0.5 ml SUBCUT .ONCE ONE Stop: 05/16/17 20:34 Last Admin: 05/17/17 20:31 Dose: 0.5 ml Nalbuphine HCl (Nubain) 20 mg IM ONETIME ONE Stop: 05/16/17 09:46 Last Admin: 05/16/17 07:41 Dose: 20 mg Oxycodone HCl (Oxycodone) 5 mg PO ONETIME ONE Stop: 05/17/17 20:01 Last Admin: 05/17/17 20:29 Dose: 5 mg Sodium Chloride (Saline Flush) 10 ml FLUSH ASDIRECTED PRN PRN Reason: Keep Vein Open Sufentanil Citrate (Sufenta) Confirm Administered Dose 50 mcg .ROUTE .STK-MED ONE Stop: 05/16/17 18:15 Last Admin: 05/16/17 19:31 Dose: Not Given Sufentanil Citrate (Sufenta) 10 mcg ITHECAL .STK-MED ONE Stop: 05/17/17 15:02 - Problem List & Annotations (1) (normal spontaneous vaginal delivery) SNOMED Code(s): 78531374 Code(s): O80 - ENCOUNTER FOR FULL-TERM UNCOMPLICATED DELIVERY Status: Acute Current Visit: Yes (2) No care in current SNOMED Code(s): 5008534673564 Code(s): O09.30 - SUPRVSN OF PREG W INSUFFICIENT ANTENAT CARE, UNSP TRIMESTER Status: Acute Current Visit: Yes - Plan Plan:: Agree with student assessment and plan. Social work will be seeing patient and her baby RE: poor care and THC use. Anticipate discharge today pending their evaluation. Patti Orona MD
[2017-05-18 09:03] VITALS: BP 109/67
--- NOTE | 2017-05-18 12:59 | PCM.DCSUM1 ---
<Sayra Kaplan - Last Filed: 05/18/17 13:34> Discharge Summary - Hospital Course HPI Initial Comments: Patient brought to [facility] Labor and Delivery by Ambulance from [place], [place] on 05/16/17. Patient was 2.5cm dilated upon arrival. See HPI by Dr. Garces Brief History: NSVP at 39 1/7 weeks with no care. Gestational age determined by 24 week ultrasound. Patient now - Discharge Data Discharge Date: 05/18/17 Discharge Disposition: Home, Self-Care 01 Condition: Good - Discharge Diagnosis/Problem(s) (1) SNOMED Code(s): 63724985 ICD Code: Z34.90 - ENCNTR FOR SUPRVSN OF NORMAL , UNSP, UNSP TRIMESTER Status: Acute Current Visit: No QualifierTitle: Weeks of gestation: 39 weeks Qualified Code(s): Z3A.39 - 39 weeks gestation of - Patient Instructions Diet: Usual Diet as Tolerated, Drink 8-10+ Glasses/Day, No Alcoholic Beverages Activity: As Tolerated, No Strenuous Activities Driving: May Drive Today Showering/Bathing: May Shower Notify Provider of: Fever, Increased Pain - Discharge Plan Home Medications: Home Meds Ferrous Sulfate [Iron] 325 mg PO DAILY 02/28/17 [History] Pnv No.122/Iron/Folic Acid [ Multi Tablet] 1 each PO DAILY 02/28/17 [ History] Patient Handouts: Home Care Instructions for Mom - Discharge Summary/Plan Comment Discharge Summary/Plan Comment: Discharge to home today. - General Info Date of Service: 05/18/17 Admission Dx/Problem (Free Text: at 39w1d with no care. Subjective Update: Post- day 2. Patient is feeling well "except for contractions, which happen when I breast feed". Contractions are described as "crampy" and the lower abdomen feels "bruised". Pain is controlled with oxycodone and tylenol. She is with no concerns, baby latching well. She is urinating and has flatulence, but has not had a bowel movement since admission. She is tolerating a full diet. Denies SOB, nausea, vomiting, fever, chills. Father of baby was arrested last night on warrant. Patient's access to transportation is limited. Functional Status: Reports: Pain Controlled, Tolerating Diet, Ambulating, Urinating - Review of Systems General: Reports: No Symptoms HEENT: Reports: No Symptoms Pulmonary: Denies: Shortness of Breath, Cough Cardiovascular: Reports: No Symptoms. Denies: Chest Pain, Edema Gastrointestinal: Reports: Abdominal Pain (Uterine cramping with ) , Constipation. Denies: Decreased Appetite, Nausea, Vomiting Genitourinary: Reports: No Symptoms. Denies: Burning, Hematuria Musculoskeletal: Reports: No Symptoms. Denies: Back Pain Skin: Reports: No Symptoms. Denies: Bruising, Rash Neurological: Reports: No Symptoms. Denies: Confusion, Numbness Psychiatric: Reports: No Symptoms - Patient Data Vitals - Most Recent: Last Vital Signs Temp 96.3 F 05/18/17 08:00 Pulse 68 05/18/17 08:00 Resp 16 05/18/17 08:00 BP 109/67 05/18/17 08:00 Pulse Ox 99 05/18/17 08:00 Weight - Most Recent: 66.678 kg I&O - Last 24 hours: Intake & Output 05/17/17 05/18/17 05/18/17 22:59 06:59 14:59 Intake Total 1600 Balance 1600 PEREZ Results - Last 24 hrs: 05/15/17 Group B Strep: Negative 05/17/17 Med Orders - Current: Current Medications Acetaminophen (Tylenol) 650 mg PO Q6H PRN PRN Reason: mild pain or fever Last Admin: 05/18/17 07:18 Dose: 650 mg Benzocaine/Menthol (Dermoplast Pain Relief Ward) 0 gm TOP Q4H PRN PRN Reason: Perineal comfort measures Last Admin: 05/17/17 04:38 Dose: 1 spr Carboprost Tromethamine (Hemabate Ds) 250 mcg IM ASDIRECTED PRN PRN Reason: HEMORRHAGE Carboprost Tromethamine (Hemabate Ds) 250 mcg IM ASDIRECTED PRN PRN Reason: Excessive vaginal bleeding Docusate Sodium (Colace) 100 mg PO BID PRN PRN Reason: Constipation Last Admin: 05/18/17 07:18 Dose: 100 mg Lactated Ringer's (Ringers, Lactated) 1,000 mls @ 125 mls/hr IV ASDIRECTED USMAN Last Admin: 05/16/17 18:28 Dose: 125 mls/hr Oxytocin/Sodium Chloride (Pitocin In Ns 30 Unit/500 Ml) 30 unit in 500 mls @ 2 mls/hr IV TITRATE USMAN; 2 MUNITS/MIN PRN Reason: Protocol Last Titration: 05/16/17 22:55 Dose: 50 munits/min, 50 mls/hr Oxytocin/Sodium Chloride (Pitocin In Ns 30 Unit/500 Ml) 30 unit in 500 mls @ 2 mls/hr IV TITRATE USMAN; 2 MUNITS/MIN PRN Reason: Protocol Lidocaine HCl (Xylocaine-Mpf 1%) 10 ml INJECT ASDIRECTED PRN PRN Reason: Perineal Repair Methylergonovine Maleate (Methergine) 0.2 mg IM ASDIRECTED PRN PRN Reason: Hemorrhage Misoprostol (Cytotec) 800 mcg RECTAL ASDIRECTED PRN PRN Reason: Hemorrhage Misoprostol (Cytotec) 800 mcg RECTAL ONETIME PRN PRN Reason: Hemorrhage Ondansetron HCl (Zofran) 4 mg IV Q4H PRN PRN Reason: Nausea/Vomiting Last Admin: 05/16/17 18:03 Dose: 4 mg Oxycodone HCl (Oxycodone) 5 mg PO Q6H PRN PRN Reason: Pain Last Admin: 05/18/17 07:20 Dose: 5 mg Oxytocin (Pitocin) 10 unit IM ONETIME PRN PRN Reason: Bleeding Prenat Multivit/[place]/Iron/Folic Ac ( Plus Iron) 1 each PO DAILY USMAN Last Admin: 05/17/17 08:44 Dose: 1 each Simethicone (Simethicone) 80 mg PO Q4H PRN PRN Reason: Gas Last Admin: 05/17/17 20:29 Dose: 80 mg Sodium Chloride (Saline Flush) 10 ml FLUSH ASDIRECTED PRN PRN Reason: Keep Vein Open Zolpidem Tartrate (Ambien) 5 mg PO BEDTIME PRN PRN Reason: Insomnia Discontinued Medications Acetaminophen (Tylenol) 650 mg PO Q4H PRN PRN Reason: Pain (Mild 1-3) and fever Ampicillin Sodium (Ampicillin) Confirm Administered Dose 1 gm IV .STK-MED ONE Stop: 05/16/17 14:09 Last Admin: 05/16/17 16:05 Dose: Not Given Epinephrine HCl (Adrenalin) Confirm Administered Dose 1 mg .ROUTE .STK-MED ONE Stop: 05/16/17 18:15 Last Admin: 05/16/17 19:31 Dose: Not Given Epinephrine HCl (Adrenalin) 0.1 mg IV .STK-MED ONE Stop: 05/17/17 15:02 Fentanyl (Sublimaze) 50 mcg IVPUSH ONETIME ONE Stop: 05/16/17 16:02 Last Admin: 05/16/17 16:21 Dose: 50 mcg Fentanyl (Sublimaze) Confirm Administered Dose 100 mcg .ROUTE .STK-MED ONE Stop: 05/16/17 18:14 Last Admin: 05/16/17 19:30 Dose: Not Given Fentanyl (Sublimaze) 20 mcg ITHECAL .STK-MED ONE Stop: 05/17/17 15:02 Ampicillin Sodium 1 gm/ Sodium (Chloride) 100 mls @ 100 mls/hr IV ASDIRECTED USMAN Stop: 05/17/17 08:59 Ampicillin Sodium 1 gm/ Sodium (Chloride) 50 mls @ 100 mls/hr IV Q6H USMAN Stop: 05/17/17 00:51 Last Admin: 05/16/17 20:15 Dose: Not Given Lactated Ringer's (Ringers, Lactated) 500 mls @ 125 mls/hr IV .BOLUS ONE Stop: 05/16/17 11:51 Last Admin: 05/16/17 12:53 Dose: 125 mls/hr Ampicillin Sodium 1 gm/ Sodium (Chloride) 100 mls @ 100 mls/hr IV ONETIME ONE Stop: 05/16/17 09:29 Last Admin: 05/16/17 07:40 Dose: 100 mls/hr Ibuprofen (Motrin) 800 mg PO Q8H PRN PRN Reason: Mild Pain or Fever Measles/Mumps/Rubella Vaccine Live (M-M-R Ii Vaccine) 0.5 ml SUBCUT .ONCE ONE Stop: 05/16/17 20:34 Last Admin: 05/17/17 20:31 Dose: 0.5 ml Nalbuphine HCl (Nubain) 20 mg IM ONETIME ONE Stop: 05/16/17 09:46 Last Admin: 05/16/17 07:41 Dose: 20 mg Oxycodone HCl (Oxycodone) 5 mg PO ONETIME ONE Stop: 05/17/17 20:01 Last Admin: 05/17/17 20:29 Dose: 5 mg Sodium Chloride (Saline Flush) 10 ml FLUSH ASDIRECTED PRN PRN Reason: Keep Vein Open Sufentanil Citrate (Sufenta) Confirm Administered Dose 50 mcg .ROUTE .STK-LevelUp ONE Stop: 05/16/17 18:15 Last Admin: 05/16/17 19:31 Dose: Not Given Sufentanil Citrate (Sufenta) 10 mcg ITHECAL .[employer]-LevelUp ONE Stop: 05/17/17 15:02 - Exam General: Reports: Alert, Oriented HEENT: Reports: Pupils Equal, Pupils Reactive, EOMI, Mucous Membr. Moist/[place] Neck: Reports: Supple Lungs: Reports: Clear to Auscultation, Normal Respiratory Effort. Denies: Crackles, Rhonchi Cardiovascular: Reports: Regular Rate, Regular Rhythm, No Murmurs GI/Abdominal Exam: Normal Bowel Sounds, Soft, Other (Uterus firm.) (Female) Exam: No: Vaginal Tears Back Exam: Reports: Normal Inspection Extremities: Normal Inspection, Normal Range of Motion, No Pedal Edema, Normal Capillary Refill Skin: Reports: Warm, Dry, Intact Neurological: Reports: No New Focal Deficit, Normal Gait Psy/Mental Status: Reports: Alert, Normal Affect, Normal Mood *Q Meaningful Use (DIS) - VTE *Q VTE Criteria *Q: - Stroke *Q Stroke Criteria *Q: - AMI *Q AMI Criteria *Q: <Patti Orona - Last Filed: 05/18/17 15:33> Discharge Summary - Hospital Course Brief History: CORRECTION: (not NSVP) - Discharge Diagnosis/Problem(s) (1) (normal spontaneous vaginal delivery) SNOMED Code(s): 64929343 ICD Code: O80 - ENCOUNTER FOR FULL-TERM UNCOMPLICATED DELIVERY Status: Acute Current Visit: Yes (2) No care in current SNOMED Code(s): 1883651988542 ICD Code: O09.30 - SUPRVSN OF PREG W INSUFFICIENT ANTENAT CARE, UNSP TRIMESTER Status: Acute Current Visit: Yes - Patient Summary/Data Operative Procedure(s) Performed: None Complications: None Consults: none Labs Pending at D/C: [facility] metabolic screen Meconium drug screen Recommended Follow-up Testing/Procedures: None Planned Operative Procedure(s) after DC: None Hospital Course: Unremarkable (please see subjective section) - Discharge Summary/Plan Comment Discharge Summary/Plan Comment: Agree with student assessment and plan. Patient was evaluated by me, and plan is per my guidance. Breast pump prescription was provided for patient. Patient advised to follow-up in 6-8 weeks for routine care. Reasons to return sooner were reviewed. Patient denied any questions. Patti Orona MD - Patient Data Vitals - Most Recent: Last Vital Signs Temp 35.7 C 05/18/17 08:00 Pulse 68 05/18/17 08:00 Resp 16 05/18/17 08:00 BP 109/67 05/18/17 08:00 Pulse Ox 99 05/18/17 08:00 I&O - Last 24 hours: Intake & Output 05/18/17 05/18/17 05/18/17 06:59 14:59 22:59 Intake Total 1600 Balance 1600 Med Orders - Current: Current Medications Acetaminophen (Tylenol) 650 mg PO Q6H PRN PRN Reason: mild pain or fever Last Admin: 05/18/17 13:32 Dose: 650 mg Benzocaine/Menthol (Dermoplast Pain Relief Ward) 0 gm TOP Q4H PRN PRN Reason: Perineal comfort measures Last Admin: 05/17/17 04:38 Dose: 1 spr Carboprost Tromethamine (Hemabate Ds) 250 mcg IM ASDIRECTED PRN PRN Reason: HEMORRHAGE Carboprost Tromethamine (Hemabate Ds) 250 mcg IM ASDIRECTED PRN PRN Reason: Excessive vaginal bleeding Docusate Sodium (Colace) 100 mg PO BID PRN PRN Reason: Constipation Last Admin: 05/18/17 07:18 Dose: 100 mg Lactated Ringer's (Ringers, Lactated) 1,000 mls @ 125 mls/hr IV ASDIRECTED USMAN Last Admin: 05/16/17 18:28 Dose: 125 mls/hr Oxytocin/Sodium Chloride (Pitocin In Ns 30 Unit/500 Ml) 30 unit in 500 mls @ 2 mls/hr IV TITRATE USMAN; 2 MUNITS/MIN PRN Reason: Protocol Last Titration: 05/16/17 22:55 Dose: 50 munits/min, 50 mls/hr Oxytocin/Sodium Chloride (Pitocin In Ns 30 Unit/500 Ml) 30 unit in 500 mls @ 2 mls/hr IV TITRATE USMAN; 2 MUNITS/MIN PRN Reason: Protocol Lidocaine HCl (Xylocaine-Mpf 1%) 10 ml INJECT ASDIRECTED PRN PRN Reason: Perineal Repair Methylergonovine Maleate (Methergine) 0.2 mg IM ASDIRECTED PRN PRN Reason: Hemorrhage Misoprostol (Cytotec) 800 mcg RECTAL ASDIRECTED PRN PRN Reason: Hemorrhage Misoprostol (Cytotec) 800 mcg RECTAL ONETIME PRN PRN Reason: Hemorrhage Ondansetron HCl (Zofran) 4 mg IV Q4H PRN PRN Reason: Nausea/Vomiting Last Admin: 05/16/17 18:03 Dose: 4 mg Oxycodone HCl (Oxycodone) 5 mg PO Q6H PRN PRN Reason: Pain Last Admin: 05/18/17 13:32 Dose: 5 mg Oxytocin (Pitocin) 10 unit IM ONETIME PRN PRN Reason: Bleeding Prenat Multivit/[employer]/Iron/Folic Ac ( Plus Iron) 1 each PO DAILY USMAN Last Admin: 05/18/17 13:32 Dose: 1 each Simethicone (Simethicone) 80 mg PO Q4H PRN PRN Reason: Gas Last Admin: 05/17/17 20:29 Dose: 80 mg Sodium Chloride (Saline Flush) 10 ml FLUSH ASDIRECTED PRN PRN Reason: Keep Vein Open Zolpidem Tartrate (Ambien) 5 mg PO BEDTIME PRN PRN Reason: Insomnia Discontinued Medications Acetaminophen (Tylenol) 650 mg PO Q4H PRN PRN Reason: Pain (Mild 1-3) and fever Ampicillin Sodium (Ampicillin) Confirm Administered Dose 1 gm IV .STK-MED ONE Stop: 05/16/17 14:09 Last Admin: 05/16/17 16:05 Dose: Not Given Epinephrine HCl (Adrenalin) Confirm Administered Dose 1 mg .ROUTE .STK-MED ONE Stop: 05/16/17 18:15 Last Admin: 05/16/17 19:31 Dose: Not Given Epinephrine HCl (Adrenalin) 0.1 mg IV .STK-MED ONE Stop: 05/17/17 15:02 Fentanyl (Sublimaze) 50 mcg IVPUSH ONETIME ONE Stop: 05/16/17 16:02 Last Admin: 05/16/17 16:21 Dose: 50 mcg Fentanyl (Sublimaze) Confirm Administered Dose 100 mcg .ROUTE .STK-MED ONE Stop: 05/16/17 18:14 Last Admin: 05/16/17 19:30 Dose: Not Given Fentanyl (Sublimaze) 20 mcg ITHECAL .STK-MED ONE Stop: 05/17/17 15:02 Ampicillin Sodium 1 gm/ Sodium (Chloride) 100 mls @ 100 mls/hr IV ASDIRECTED [facility] Stop: 05/17/17 08:59 Ampicillin Sodium 1 gm/ Sodium (Chloride) 50 mls @ 100 mls/hr IV Q6H USMAN Stop: 05/17/17 00:51 Last Admin: 05/16/17 20:15 Dose: Not Given Lactated Ringer's (Ringers, Lactated) 500 mls @ 125 mls/hr IV .BOLUS ONE Stop: 05/16/17 11:51 Last Admin: 05/16/17 12:53 Dose: 125 mls/hr Ampicillin Sodium 1 gm/ Sodium (Chloride) 100 mls @ 100 mls/hr IV ONETIME ONE Stop: 05/16/17 09:29 Last Admin: 05/16/17 07:40 Dose: 100 mls/hr Ibuprofen (Motrin) 800 mg PO Q8H PRN PRN Reason: Mild Pain or Fever Measles/Mumps/Rubella Vaccine Live (M-M-R Ii Vaccine) 0.5 ml SUBCUT .ONCE ONE Stop: 05/16/17 20:34 Last Admin: 05/17/17 20:31 Dose: 0.5 ml Nalbuphine HCl (Nubain) 20 mg IM ONETIME ONE Stop: 05/16/17 09:46 Last Admin: 05/16/17 07:41 Dose: 20 mg Oxycodone HCl (Oxycodone) 5 mg PO ONETIME ONE Stop: 05/17/17 20:01 Last Admin: 05/17/17 20:29 Dose: 5 mg Sodium Chloride (Saline Flush) 10 ml FLUSH ASDIRECTED PRN PRN Reason: Keep Vein Open Sufentanil Citrate (Sufenta) Confirm Administered Dose 50 mcg .ROUTE .STK-MED ONE Stop: 05/16/17 18:15 Last Admin: 05/16/17 19:31 Dose: Not Given Sufentanil Citrate (Sufenta) 10 mcg ITHECAL .[facility]-MED ONE Stop: 05/17/17 15:02 *Q Meaningful Use (DIS) - VTE *Q VTE Criteria *Q: - Stroke *Q Stroke Criteria *Q: - AMI *Q AMI Criteria *Q:
[2017-05-18] MEDS: Prenatal Multivitamin with Calcium/Folic Acid/Iron Tab PO SCH (13:32)
== END 2017-05-18 17:30 | disposition home or self-care (01) | DRG 775 ==
LOC: DL.OBCHECK 07:46 → DL.OB 08:18 → OBSVTOIN 19:59 → DL.OB 19:59 → DL.MS 05-17 07:59
PROVIDERS: ADMIT Obstetrics & Gynecology; ATTEND Obstetrics & Gynecology
PROC: 10E0XZZ Delivery of Products of Conception, External Approach (ICD-10-PCS; principal; 2017-05-16)
PROC: 00HU33Z Insertion of Infusion Device into Spinal Canal, Percutaneous Approach (ICD-10-PCS; 2017-05-16)
PROC: 3E0R3BZ Introduction of Anesthetic Agent into Spinal Canal, Percutaneous Approach (ICD-10-PCS; 2017-05-16)
PROC: 3E0234Z Introduction of Serum, Toxoid and Vaccine into Muscle, Percutaneous Approach (ICD-10-PCS; 2017-05-17)
DX: O77.0 Labor and delivery complicated by meconium in amniotic fluid (principal); O99.324 Drug use complicating childbirth; O76 Abnormality in fetal heart rate and rhythm complicating labor and delivery; F12.10 Cannabis abuse, uncomplicated; Z23 Encounter for immunization; Z3A.39 39 weeks gestation of pregnancy; Z37.0 Single live birth
CPT/HCPCS: 01967; 36415; 59409; 85027; 90471; 90707; A9270-GY; J0171; J0290; J2300; J2405; J2590; J3010; J7050; J7120